=== PATIENT | male | born 1940 | race Caucasian/White ===

== ENCOUNTER 2016-04-09 06:40 | Day surgery (SDC) | payer OTHER, BC ==
[2016-04-09 07:46] VITALS: BMI 25.4
[2016-04-09] MEDS ORDERED: LIDOCAINE HCL 2% 100 MG/5 ML DISP.SYRIN ONE (08:37)
[2016-04-09] MEDS ORDERED: PROPOFOL 20 ML ONE ×2 (08:37)
[2016-04-09 09:41] VITALS: TEMP 97.5
[2016-04-09 09:51] VITALS: PULSE 62
[2016-04-09 10:21] VITALS: BP 121/66
--- NOTE | 2016-04-10 10:35 | PATH ---
Surgical Pathology Report Patient Name: CAROLINE KRUGER [facility]. Rec. #: [id number] /Age/Gender: 1940 (Age: 75) / M Account: [id number] Location: [facility]-ENDOSCOPY Taken: 04/09/2016 Received: 04/09/2016 Reported: 04/10/2016 Physicians: Trino Saldaña M.D. Specimen(s) Received A: BX 38 CM ESOPHAGUS B: BX 36 CM ESOPHAGUS C: BX 34 CM ESOPHAGUS D: BX 32 CM ESOPHAGUS E: BX 30 CM ESOPHAGUS F: BX 28 CM ESOPHAGUS Clinical History Barretts esophagus Final Diagnosis A. ESOPHAGUS, 38 CM, BIOPSY: SQUAMOUS AND GASTRIC MUCOSA WITH CHRONIC INFLAMMATION AND INTESTINAL METAPLASIA CONSISTENT WITH MORA'S ESOPHAGUS. NO DYSPLASIA IDENTIFIED. B. ESOPHAGUS, 36 CM, BIOPSY: SQUAMOUS AND GASTRIC MUCOSA WITH CHRONIC INFLAMMATION AND INTESTINAL METAPLASIA CONSISTENT WITH MORA'S ESOPHAGUS. NO DYSPLASIA IDENTIFIED. C. ESOPHAGUS, 34 CM, BIOPSY: SQUAMOUS AND GASTRIC MUCOSA WITH CHRONIC INFLAMMATION AND INTESTINAL METAPLASIA CONSISTENT WITH MORA'S ESOPHAGUS. NO DYSPLASIA IDENTIFIED. D. ESOPHAGUS, 32 CM, BIOPSY: SQUAMOUS AND GASTRIC MUCOSA WITH CHRONIC INFLAMMATION AND INTESTINAL METAPLASIA CONSISTENT WITH MORA'S ESOPHAGUS. NO DYSPLASIA IDENTIFIED. E. ESOPHAGUS, 30 CM, BIOPSY: SQUAMOUS AND GASTRIC MUCOSA WITH CHRONIC INFLAMMATION AND INTESTINAL METAPLASIA CONSISTENT WITH MORA'S ESOPHAGUS. NO DYSPLASIA IDENTIFIED. F. ESOPHAGUS, 28 CM, BIOPSY: SQUAMOUS AND GASTRIC MUCOSA WITH CHRONIC INFLAMMATION AND INTESTINAL METAPLASIA CONSISTENT WITH MORA'S ESOPHAGUS. NO DYSPLASIA IDENTIFIED. Electronically Signed Cory Pettit M.D. Gross Description A. Received in formalin, labeled "biopsy 38 cm esophagus" are 3 laboy, irregular portions of soft tissue ranging from 0.2-0.5 cm. in greatest dimension. The specimens are submitted in toto in one cassette. B. Received in formalin, labeled "biopsy 36 cm esophagus" are 5 laboy, irregular portions of soft tissue ranging from 0.1-0.7 cm. in greatest dimension. The specimens are submitted in toto in one cassette. C. Received in formalin, labeled "biopsy 34 cm esophagus" are 4 laboy, irregular portions of soft tissue averaging 0.2 cm. in greatest dimension. The specimens are submitted in toto in one cassette. D. Received in formalin, labeled "biopsy 32 cm esophagus" are 5 laboy, irregular portions of soft tissue averaging 0.2 cm. in greatest dimension. The specimens are submitted in toto in one cassette. E. Received in formalin, labeled "biopsy 30 cm esophagus" are 2 laboy, irregular portions of soft tissue measuring 0.2 and 0.3 cm. in greatest dimension. The specimens are submitted in toto in one cassette. F. Received in formalin, labeled "biopsy 28 cm esophagus" are 3 laboy, irregular portions of soft tissue ranging from 0.2-0.4 cm. in greatest dimension. The specimens are submitted in toto in one cassette. 04/09/2016 [facility]04/09/2016
== END 2016-04-09 10:42 | disposition home or self-care (01) ==
LOC: JASU-ENDO 06:40
PROVIDERS: ATTEND Internal Medicine Gastroenterology
PROC: 0DB18ZX Excision of Upper Esophagus, Via Natural or Artificial Opening Endoscopic, Diagnostic (ICD-10-PCS; 2016-04-09)
PROC: 0DB28ZX Excision of Middle Esophagus, Via Natural or Artificial Opening Endoscopic, Diagnostic (ICD-10-PCS; 2016-04-09)
PROC: 0DB38ZX Excision of Lower Esophagus, Via Natural or Artificial Opening Endoscopic, Diagnostic (ICD-10-PCS; principal; 2016-04-09 08:30)
DX: K22.70 Barrett's esophagus without dysplasia (principal)
CPT/HCPCS: 88305-TC

== ENCOUNTER 2018-02-11 13:14 | Inpatient (IN) | payer OTHER, BC ==
[2018-02-11 13:42] VITALS: BMI 25.4
--- NOTE | 2018-02-11 14:18 | PDOC ---
History of Present Illness - General Chief Complaint: Abscess Boil Stated Complaint: ABCESS/ CYST Time Seen by Provider: 02/11/18 14:05 History Source: Patient Exam Limitations: No Limitations - History of Present Illness Initial Comments: 77 yo M w a pmh of margot esophagus with wide reflux, gerd, dvt, copd, hyperlidpidemia, hypothyroidism, bph, presents to the ER with pain on his buttock. He reports that for the past 3 days his pain has worsened and now he cannot sit on his but unless he applies a significant amount of lidocaine to the painful area which he bought from the drug store. The painful area around his bum is so painful that he has not been able to make a bowel movement for the past 3 days. He states he had a fever of 102 at home and then took tylenol. He called his GI doc - Doctor my who advised him to come to the ER to have his rectume checked out. Denies any chest pain, SOB, or difficulty breathing. PCP: Sola Alvarez Social Hx: former smoker - 10 pack year. Quit more than 10 years ago Allergies: NKA, NKDA Psh: Left leg vascular repair, multiple hernia repairs. Past History - Past Medical History Allergies/Adverse Reactions: Allergies Allergy/AdvReac Type Severity Reaction Status Date / Time No Known Drug Allergies Allergy Verified 02/11/18 13:37 Home Medications: Ambulatory Orders Levothyroxine [Synthroid -] 100 mcg PO DAILY 11/11/12 Multivitamin [Multi-Day Vitamins] 1 each PO DAILY 11/11/12 [place]-3 Acid Ethyl Esters [Lovaza -] 2,000 mg PO BID 11/11/12 Glucosam/[place]/C/Manganese [Cosamin Ds Capsule] 1 each PO BID 03/15/15 Tamsulosin HCl 0.4 mg PO HS 03/15/15 Clopidogrel Bisulfate [Plavix -] 75 mg PO DAILY #30 tablet 09/28/15 Gabapentin 300 mg PO HS 04/09/16 Montelukast Na [Singulair -] 10 mg PO HS 04/09/16 Atorvastatin Calcium 20 mg PO HS 06/11/17 Hydrocodone/Acetaminophen [Hydrocodone-Acetamin 7.5-325] 1 each PO DAILY Magnesium Carb/Aluminum Hydrox [Gaviscon Es Tablet Chew] 1 each PO BID 06/11/17 Pantoprazole Sodium 40 mg PO DAILY 06/11/17 Ranitidine HCl [Zantac] 300 mg PO HS 06/11/17 Acetaminophen [Tylenol .Regular Strength -] 650 mg PO Q6H PRN tablet 06/14/17 Albuterol 0.083% Nebulizer Tesha [Ventolin 0.083% Nebulizer Soln -] 1 amp NEB Q4H PRN #120 amp 06/14/17 Cefuroxime Axetil [Ceftin -] 500 mg PO BID #10 tablet 06/14/17 Docusate Sodium [Colace -] 100 mg PO DAILY capsule 06/14/17 Oseltamivir Phosphate [Tamiflu -] 75 mg PO BID #8 capsule 06/14/17 Pantoprazole Sodium [Protonix -] 40 mg PO DAILY tablet.ec 06/14/17 Pramoxine Hcl [Proctofoam] 0 gm TP HS 30 Days insert 06/14/17 Prednisone [Deltasone] 20 mg PO DAILY #30 tablet 06/14/17 Tiotropium [place] [Spiriva] 1 puff IH DAILY #1 cap 06/14/17 oxyCODONE HCL [Roxicodone -] 5 mg PO Q8H PRN tablet MDD 3 06/14/17 Anemia: No Asthma: Yes Cancer: No Cardiac Disorders: Yes (CAROTID ARTERY STENOSIS) CVA: No COPD: Yes CHF: No Dementia: No Diabetes: No GI Disorders: Yes (GERD,MORA'S ESOPHAGUS,DIVERTICULAR DISEASE OF COLON) Disorders: Yes (BPH) HTN: No Hypercholesterolemia: Yes Liver Disease: No Seizures: No Thyroid Disease: Yes (HYPO) - Surgical History Abdominal Surgery: No Appendectomy: No Cardiac Surgery: Yes (LEFT ENDARTERECTOMY) Cholecystectomy: No Lung Surgery: No Neurologic Surgery: No Orthopedic Surgery: No - Immunization History Immunization Up to Date: Yes - Suicide/Smoking/Psychosocial Hx Smoking Status: Yes Smoking History: Former smoker Have you smoked in the past 12 months: No Number of Cigarettes Smoked Daily: 0 If you are a former smoker, when did you quit?: 2008 Information on smoking cessation initiated: No Hx Alcohol Use: No Drug/Substance Use Hx: No Substance Use Type: Alcohol Hx Substance Use Treatment: No Review of Systems - Review of Systems Able to Perform ROS?: Yes Comments:: CONSTITUTIONAL: Present: Fever Absent: no chills, no fatigue EYES: Absent: visual changes ENT: Absent: ear pain, no sore throat CARDIOVASCULAR: Absent: chest pain, no palpitations RESPIRATORY: Absent: cough, no SOB GI: Absent: abdominal pain, no nausea, no vomiting, no constipation, no diarrhea GENITOURINARY: Absent: dysuria, no frequency, no hematuria MUSKULOSKELETAL: Absent: back pain, no arthralgia, no myalgia SKIN: Present: rash NEURO: Absent: headache *Physical Exam - Vital Signs Last Vital Signs Temp Pulse Resp BP Pulse Ox 98.5 F 76 18 119/57 L 98 02/11/18 13:37 02/11/18 13:37 02/11/18 13:37 02/11/18 13:37 02/11/18 13:37 - Physical Exam Comments: GENERAL: Well-appearing, well-nourished. No apparent distress. Buttock: The medial half of the Left butt cheek is erythematous. There is a hard , indurated, fluctuant 6x7 cm painful abscess along the inferior rectum with active pus draining. HEENT: Normocephalic, atraumatic. PERRL, EOM intact. CARDIOVASCULAR: Normal S1, S2. Regular rate and rhythm. PULMONARY: Clear to auscultation bilaterally. ABDOMEN: Soft, non-distended, non-tender. EXTREMITIES: Normal ROM in all four extremities. No gross deformities. SKIN: Warm, dry. NEUROLOGICAL: No focal neurological deficits. Moderate Sedation - Procedure Monitoring Vital Signs: Procedure Monitoring Vital Signs Temperature 98.5 F 02/11/18 13:37 Pulse Rate 76 02/11/18 13:37 Respiratory Rate 18 02/11/18 13:37 Blood Pressure 119/57 L 02/11/18 13:37 O2 Sat by Pulse Oximetry (%) 98 02/11/18 13:37 Medical Decision Making - Medical Decision Making 77 yo M w a pmh of margot esophagus with wide reflux, gerd, dvt, copd, hyperlidpidemia, hypothyroidism, bph, presents to the ER with a perirectal abscess. DD includes but not limited to: dianna-rectal/dianna anal abscess, MRSA. Plan: Cbc, Cmp, Surgical consults, +/- I & D by surgery vs EM. - IV placement and INR ordered. Dr. Prince came and evaluated the patient. He is going to take the patient to the OR for an I and D of the perirectal abscess. Patient will be admitted to hospital or I&D in the OR by Dr. Prince *DC/Admit/Observation/Transfer Diagnosis at time of Disposition: Dianna-rectal abscess - Discharge Dispostion Condition at time of disposition: Guarded Decision to Admit order: Yes - Referrals Referrals: Sola Alvarez MD [Primary Care Provider] - - Patient Instructions - Post Discharge Activity
--- NOTE | 2018-02-11 16:02 | PDOC ---
Attending Attestation - Resident Resident Name: Shabbir Lopez - ED Attending Attestation I have performed the following: I have examined & evaluated the patient, The case was reviewed & discussed with the resident, I agree w/resident's findings & plan - HPI HPI: 02/11/18 15:59 77-year-old male with history of multiple medical problems presents with several days of progressive and painful left buttock lesion. No discharge or bleeding, unable to have bowel movement, reports 1 febrile episode of 102 but otherwise no chills. No history of recurring abscesses. - Physicial Exam PE: 02/11/18 16:00 Vital signs are within normal limits, afebrile Well-appearing 77-year-old male Skin exam: Left perianal abscess with tracking cellulitis of the left buttock, indurated region measuring about an to 12 cm, open lesion medially along the cleft with pustular head, there is palpable tender tracking induration around 11 :00 on rectal examination - Medical Decision Making 02/11/18 16:01 77-year-old male presents with perianal/perirectal abscess, no Sirs or sepsis. Check labs Surgery consulted, consider imaging will need I+D, possible OR
[2018-02-11 17:30] LABS: BASO % 0.4 % (0-2.0); EOS % 0.8 % (0-4.5); HEMATOCRIT 34.4 % (35.4-49); HEMOGLOBIN 12.6 GM/dL (11.7-16.9); LYMPH % 12.8 % (8-40); MCH 36.7 pg (25.7-33.7); MCHC 36.5 g/dl (32.0-35.9); MEAN CELL VOLUME 100.5 fl (80-96); MEAN PLT VOLUME 8.7 fl (7.5-11.1); MONO % 5.5 % (3.8-10.2); NEUT % 80.5 % (42.8-82.8); PLATELET COUNT 126 K/MM3 (134-434); RBC 3.43 M/mm3 (4.00-5.60); RDW 14.3 % (11.9-15.9); WHITE BLOOD COUNT 7.7 K/mm3 (4.0-10.0)
[2018-02-11] MEDS ORDERED: ACETAMINOPHEN 325 MG TABLET (FP) PO PRN ×2 (17:37→19:10)
[2018-02-11] MEDS ORDERED: ALBUTEROL SO4 0.083% IH SOL 2.5 MG/3 ML VIAL.NEB. NEB PRN ×2 (17:37→19:10)
[2018-02-11 17:40] LABS: INR 1.15 (0.83-1.09); PROTHROMBIN TIME (PATIENT) 13.6 SEC (9.7-13.0)
[2018-02-11] MEDS ORDERED: MORPHINE SULFATE 2 MG/ML VIAL IVPUSH PRN (17:41)
[2018-02-11] MEDS ORDERED: D5-1/2NS+20 MEQ KCL - 20 MEQ/1,000 ML INFUS.BAG IV SCH (17:45)
[2018-02-11] MEDS ORDERED: BUPIVACAINE HCL/PF 0.5% (5MG/ML) 10 ML VIAL ONE (17:48)
[2018-02-11] MEDS ORDERED: LIDOCAINE HCL 1%, 10 MG/ML (20ML VIAL) ONE (17:48)
[2018-02-11 17:52] LABS: ALBUMIN 3.5 g/dl (3.4-5.0); ALK PHOS 61 U/L (45-117); ANION GAP 6 MMOL/L (8-16); BLOOD UREA NITROGEN 22 mg/dL (7-18); CALCIUM 8.4 mg/dL (8.5-10.1); CHLORIDE 102 mmol/L (98-107); CO2 28 mmol/L (21-32); CREATININE 0.8 mg/dL (0.55-1.3); GLUCOSE,RANDOM 93 mg/dL (74-106); SGOT/AST 23 U/L (15-37); SGPT/ALT 24 U/L (13-61); SODIUM 137 mmol/L (136-145); TOT PROT 6.2 g/dl (6.4-8.2)
[2018-02-11] MEDS ORDERED: KETAMINE HCL 200 MG/20 ML VIAL ONE (18:00)
[2018-02-11] MEDS ORDERED: PROPOFOL 20 ML ONE (18:00)
[2018-02-11] MEDS ORDERED: MIDAZOLAM HCL 2 MG/2 ML SINGLE DOSE VIAL ONE (18:00)
[2018-02-11] MEDS ORDERED: GLYCOPYRROLATE 0.2 MG/1 ML VIAL ONE (18:06)
[2018-02-11] MEDS ORDERED: ERTAPENEM SODIUM 1 GM VIAL ONE (18:15)
[2018-02-11] MEDS ORDERED: ERTAPENEM SODIUM 1 GM VIAL IVPB ONE (18:16)
[2018-02-11] MEDS ORDERED: DEXAMETHASONE SOD PHOSPHATE 4 MG/1 ML VIAL ONE (18:38)
[2018-02-11] MEDS ORDERED: ONDANSETRON 4 MG/2 ML VIAL IVPUSH PRN ×2 (18:48→19:11)
[2018-02-11] MEDS ORDERED: oxyCODONE HCL 5 MG TABLET PO PRN ×3 (18:48→19:11)
--- NOTE | 2018-02-11 18:49 | OP ---
Operative Note - Note: Operative Date: 02/11/18 Pre-Operative Diagnosis: Left perirectal abscess Operation: I&D of L perirectal abscess Findings: as dictated Post-Operative Diagnosis: Other (L ischialrectal abscess) Surgeon: Robbi Prince Field Service Technician Poultry: Dariel Wheatley Anesthesiologist/MOBILE HEAVY EQUIPMENT OPERATOR: Chepe Figueroa Anesthesia: MAC Specimens Removed: cultures x 2 sent Estimated Blood Loss (mls): 20 (ml) Fluid Volume Replaced (mls): 800 (ml LR) Operative Report Dictated: Yes
--- NOTE | 2018-02-11 18:50 | SURG ---
Surgery Hostess Host Note Hostess Host: Dariel Wheatley PA-C (Suzy) Date of Service: 02/11/18 Diagnosis: L ischialrectal abscess Procedure: I&D of L ischialrectal abscess I was present for the entirety of the operative procedure. For further detail, please refer to operative report. Visit type - Case Type Case Type: ED Admission - Emergency Emergency Visit: Yes ED Registration Date: 02/11/18 Care time: The patient presented to the Emergency Department on the above date and was hospitalized for further evaluation of their emergent condition. - New patient This patient is new to me today: Yes Date on this admission: 02/13/18 - Critical Care Critical Care patient: No
[2018-02-11] MEDS ORDERED: LACTATED RINGERS SOLUTION 1,000 ML/1,000 ML INFUS.BAG IV SCH (19:00)
[2018-02-11] MEDS ORDERED: LACTATED RINGERS SOLUTION 1,000 ML IV SCH (19:00)
[2018-02-11] MEDS: D5-1/2NS+20 MEQ KCL - 20 MEQ/1,000 ML INFUS.BAG IV SCH (20:30)
--- NOTE | 2018-02-11 21:19 | HP ---
CHIEF COMPLAINT: Pain to right buttocks PCP: Dr. Sola Alvarez GI: Dr. Dueñas HISTORY OF PRESENT ILLNESS: 77 year old male with a PMH significant for Trevino's esophagus, GERD, COPD, CAD s/p L carotid endarterectomy, HLD, hypothyroidism, BPH presented to the ED with worsening pain to his left buttocks for 4 days. He has been using topical lidocaine to the area but now he can no longer sit. He has not had a bowel movement in 3 days because of the pain. He reports having a fever of 102 today for which he took APAP. He called his GI specialist Dr. Dueñas who recommended he come to the ED. Denies HAN, syncope, SOB, congestion, chest pain, palpitations , n/v. Upon admission to the ED, patient was found to have a 6x8 cm perirectal abscess for which surgeon Dr. Prince performed an I&D. Recent Travel: No PAST MEDICAL HISTORY: Archie's esophagus with wide reflux GERD DVT COPD HLD Hypothyroidism BPH PAST SURGICAL HISTORY: Left carotid endarterectomy 3 inguinal hernia repairs Right carpal tunnel surgery Left tibial ORIF Left leg vein stripping Social History: Smoking: Former, quit 12 years ago Alcohol: Quit 12 years ago Drugs: Denies Family History: Mother: Breast cancer, in her 90s Allergies No Known Drug Allergies Allergy (Verified 02/11/18 13:37) HOME MEDICATIONS: Home Medications Medication Instructions Recorded Levothyroxine [Synthroid -] 100 mcg PO DAILY 11/11/12 Multivitamin [Multi-Day Vitamins] 1 each PO DAILY 11/11/12 [place]-3 Acid Ethyl Esters [Lovaza 2,000 mg PO BID 11/11/12 -] Tamsulosin HCl 0.4 mg PO HS 03/15/15 Clopidogrel Bisulfate [Plavix -] 75 mg PO DAILY #30 tablet 09/28/15 Gabapentin 300 mg PO HS 04/09/16 Atorvastatin Calcium 20 mg PO HS 06/11/17 Hydrocodone/Acetaminophen 1 each PO BID 06/11/17 [Hydrocodone-Acetamin 7.5-325] Pantoprazole Sodium 40 mg PO DAILY 06/11/17 Ranitidine HCl [Zantac] 150 mg PO HS 06/11/17 Acetaminophen [Tylenol .Regular 650 mg PO Q6H PRN tablet 06/14/17 Strength -] Tiotropium [place] [Spiriva] 1 puff IH DAILY #1 cap 06/14/17 Aspirin 81 mg PO DAILY 02/11/18 REVIEW OF SYSTEMS CONSTITUTIONAL: Absent: fever, chills, diaphoresis, generalized weakness, malaise, loss of appetite, weight change HEENT: Absent: rhinorrhea, nasal congestion, throat pain, throat swelling, difficulty swallowing, mouth swelling, ear pain, eye pain, visual changes CARDIOVASCULAR: Absent: chest pain, syncope, palpitations, irregular heart rate, lightheadedness , peripheral edema RESPIRATORY: Absent: cough, shortness of breath, dyspnea with exertion, orthopnea, wheezing, stridor, hemoptysis GASTROINTESTINAL: (+) Constipation Absent: abdominal pain, abdominal distension, nausea, vomiting, diarrhea, melena , hematochezia GENITOURINARY: Absent: dysuria, frequency, urgency, hesitancy, hematuria, flank pain, genital pain MUSCULOSKELETAL: Absent: myalgia, arthralgia, joint swelling, back pain, neck pain SKIN: Absent: rash, itching, pallor HEMATOLOGIC/IMMUNOLOGIC: Absent: easy bleeding, easy bruising, lymphadenopathy, frequent infections ENDOCRINE: Absent: unexplained weight gain, unexplained weight loss, heat intolerance, cold intolerance NEUROLOGIC: Absent: headache, focal weakness or paresthesias, dizziness, unsteady gait, seizure, mental status changes, bladder or bowel incontinence PSYCHIATRIC: Absent: anxiety, depression, suicidal or homicidal ideation, hallucinations. PHYSICAL EXAMINATION Vital Signs - 24 hr 02/11/18 02/11/18 02/11/18 13:37 17:15 18:45 Temperature 98.5 F 99.1 F 98.1 F Pulse Rate 76 100 H Pulse Rate [ 69 Radial] Respiratory 18 18 16 Rate Blood Pressure 119/57 L 132/72 Blood Pressure 125/65 [Left Arm] O2 Sat by Pulse 98 98 100 Oximetry (%) 02/11/18 02/11/18 02/11/18 19:00 19:15 19:30 Temperature Pulse Rate 84 80 78 Pulse Rate [ Radial] Respiratory 16 16 18 Rate Blood Pressure 107/41 L 107/44 L 109/42 L Blood Pressure [Left Arm] O2 Sat by Pulse 98 100 100 Oximetry (%) 02/11/18 19:45 Temperature Pulse Rate 80 Pulse Rate [ Radial] Respiratory 18 Rate Blood Pressure 112/65 Blood Pressure [Left Arm] O2 Sat by Pulse 100 Oximetry (%) GENERAL: Awake, alert, and fully oriented, in no acute distress. HEAD: Normal with no signs of trauma. EYES: Pupils equal, round and reactive to light, extraocular movements intact, sclera anicteric, conjunctiva clear. No lid lag. EARS, NOSE, THROAT: Ears normal, nares patent, oropharynx clear without exudates. Moist mucous membranes. NECK: Normal range of motion, supple without lymphadenopathy, JVD, or masses. LUNGS: Breath sounds equal, clear to auscultation bilaterally. No wheezes, and no crackles. No accessory muscle use. HEART: Regular rate and rhythm, normal S1 and S2 without murmur, rub or gallop. ABDOMEN: Soft, nontender, not distended, normoactive bowel sounds, no guarding, no rebound, no masses. No hepatomegaly or splenomegaly. MUSCULOSKELETAL: Normal range of motion at all joints. No bony deformities or tenderness. No CVA tenderness. UPPER EXTREMITIES: 2+ pulses, warm, well-perfused. No cyanosis. No clubbing. No peripheral edema. LOWER EXTREMITIES: Non-pitting edema to left leg, 2+ pulses, warm, well- perfused. No calf tenderness NEUROLOGICAL: No facial droop, tongue midline, normal speech. Normal gait. PSYCHIATRIC: Cooperative. Good eye contact. Appropriate mood and affect. SKIN: Erythema to medial left buttocks. 6x8 cm raised, round, firm lesion with purulent drainage to LT rectum. Otherwise, skin warm, dry, normal turgor, no rashes or lesions noted, normal capillary refill. Laboratory Results - last 24 hr 02/11/18 02/11/18 02/11/18 17:10 17:10 17:10 WBC 7.7 RBC 3.43 L Hgb 12.6 Hct 34.4 L MCV 100.5 H MCH 36.7 H MCHC 36.5 H RDW 14.3 Plt Count 126 L MPV 8.7 Absolute Neuts (auto) 6.2 Neutrophils % 80.5 Lymphocytes % 12.8 D Monocytes % 5.5 Eosinophils % 0.8 D Basophils % 0.4 D Nucleated RBC % 0 PT with INR 13.60 H INR 1.15 H Sodium 137 Potassium 4.0 Chloride 102 Carbon Dioxide 28 Anion Gap 6 L BUN 22 H Creatinine 0.8 Creat Clearance w eGFR > 60 Random Glucose 93 Calcium 8.4 L Total Bilirubin 1.0 AST 23 ALT 24 Alkaline Phosphatase 61 Total Protein 6.2 L Albumin 3.5 ASSESSMENT/PLAN: 77 year old male with a PMH significant for Trevino's esophagus, GERD, COPD, CAD s/p L carotid endarterectomy, HLD, hypothyroidism, BPH presented to the ED with pain to his left buttocks for 4 days. He was admitted for surgical I&D of perirectal abscess. Perirectal Abscess - I&D by surgeon Dr. Prince today - Ancef 1G IV q8H - Pain management: - Morphine 1 mg IVP q4h PRN - Oxycodone 5 and 10 mg PO q4h PRN GERD - Hx of Treivno's esophagus with wide reflux - Ranitidine 150 mg PO QHS - Protonix 40 mg PO qday COPD - Stable - Continue Singular 2 puffs qday CAD - S/p left carotid endarterectomy 2 years ago - Continue ASA 81 mg PO qday HLD - Atorvastatin 20 mg PO QHS - [place] 3 2G PO BID Hypothyroidism - Continue Synthroid 100 mcg qday BPH - Tamsulosin 0.4 mg PO qday Seasonal Allergies - Singular 10 mg PO qday Supplement - Multivitamin Prophylaxis - DVT: Heparin SQ - GI: Protonix 40 mg PO qday FEN - D5 1/2 NS c 20 meq KCL @ 75 cc/hr - Replete as needed - Na controlled diet Disp: Patient requires further inpatient post-op monitoring. Visit type - Emergency Visit Emergency Visit: Yes Care time: The patient presented to the Emergency Department on the above date and was hospitalized for further evaluation of their emergent condition. - New Patient This patient is new to me today: Yes Date on this admission: 02/11/18 - Critical Care Critical Care patient: No
[2018-02-11] MEDS ORDERED: HEPARIN NA (PORCINE) 5,000 UNITS/ML 1ML VIAL SQ SCH (22:00)
[2018-02-11] MEDS ORDERED: MONTELUKAST NA 10 MG TABLET PO SCH (22:00)
[2018-02-11] MEDS ORDERED: ATORVASTATIN CA 20 MG TABLET (FP) PO SCH (22:00)
[2018-02-11] MEDS ORDERED: GABAPENTIN 300 MG CAPSULE (FP) PO SCH (22:00)
[2018-02-11] MEDS: HEPARIN NA (PORCINE) 5,000 UNITS/ML 1ML VIAL SQ SCH (23:05)
[2018-02-11] MEDS: MONTELUKAST NA 10 MG TABLET PO SCH (23:06)
[2018-02-11] MEDS: RANITIDINE HCL 150 MG TABLET (FP) PO SCH (23:06)
[2018-02-11] MEDS: GABAPENTIN 300 MG CAPSULE (FP) PO SCH (23:06)
[2018-02-11] MEDS: OMEGA-3 ACID ETHYL ESTERS (FATTY-ACIDS) 1 GM CAPSULE (FP) PO SCH (23:06)
[2018-02-11] MEDS: ATORVASTATIN CA 20 MG TABLET (FP) PO SCH (23:06)
[2018-02-12] MEDS: CEFAZOLIN 1 GM/D5W 1 GM/50 ML BAG IVPB SCH ×3 (02:32→18:13)
[2018-02-12] MEDS: LEVOTHYROXINE NA 100 MCG TABLET (FP) PO SCH (06:05)
[2018-02-12 06:40] LABS: BASO % 0.2 % (0-2.0); HEMATOCRIT 33.8 % (35.4-49); HEMOGLOBIN 11.7 GM/dL (11.7-16.9); LYMPH % 6.3 % (8-40); MCH 34.9 pg (25.7-33.7); MCHC 34.7 g/dl (32.0-35.9); MEAN CELL VOLUME 100.5 fl (80-96); MEAN PLT VOLUME 8.3 fl (7.5-11.1); MONO % 4.1 % (3.8-10.2); NEUT % 89.4 % (42.8-82.8); PLATELET COUNT 129 K/MM3 (134-434); RBC 3.36 M/mm3 (4.00-5.60); WHITE BLOOD COUNT 7.9 K/mm3 (4.0-10.0)
[2018-02-12] MEDS ORDERED: LEVOTHYROXINE NA 100 MCG TABLET (FP) PO SCH (07:00)
[2018-02-12 07:02] LABS: ALK PHOS 51 U/L (45-117); ANION GAP 7 MMOL/L (8-16); BILIRUBIN,TOTAL 0.7 mg/dL (0.2-1); BLOOD UREA NITROGEN 16 mg/dL (7-18); CALCIUM 7.8 mg/dL (8.5-10.1); CHLORIDE 103 mmol/L (98-107); CO2 27 mmol/L (21-32); CREATININE 0.7 mg/dL (0.55-1.3); GLUCOSE,RANDOM 127 mg/dL (74-106); POTASSIUM 4.6 mmol/L (3.5-5.1); SGOT/AST 18 U/L (15-37); SGPT/ALT 21 U/L (13-61); SODIUM 137 mmol/L (136-145); TOT PROT 5.5 g/dl (6.4-8.2)
[2018-02-12] MEDS ORDERED: TAMSULOSIN HCL 0.4 MG CAP PO SCH (08:30)
[2018-02-12] MEDS: MORPHINE SULFATE 2 MG/ML VIAL IVPUSH PRN (08:48)
[2018-02-12] MEDS ORDERED: PANTOPRAZOLE 40 MG TABLET (FP) PO SCH ×2 (10:00)
[2018-02-12] MEDS ORDERED: TIOTROPIUM BROMIDE 2.5 MCG (SPIRIVA) RESPIMAT INHALER IH SCH (10:00)
--- NOTE | 2018-02-12 10:00 | PN ---
Progress Note (short form) - Note Progress Note: POD#1 Pt without pain overnight. Packing changed this am. He states that he hasn't had a bowel movement for 5 days. Vital Signs Period Temp Pulse Resp BP Sys/Luna Pulse Ox Last 24 Hr 97.5 F-99.1 F 65-100 16-18 107-144/41-72 98-100 GEN: Appears Left buttock: Packing removed, no purulent drainage. Minimal bleeding. Repacked with 2 inch iodoform packing. No surrounding erythema. CBC, BMP //18 06:00 12//18 06:00 A/p: 77 yo male s/p Left marivel-rectal I&D, POD#1 Daily packing changes with iodoform Sitz baths daily and after BM to keep incision clean. Stool softners VNS ordered D/w Dr. Prince
[2018-02-12] MEDS ORDERED: POLYETHYLENE GLYCOL 3350 119 GM BTL PO PRN (10:01)
--- NOTE | 2018-02-12 10:02 | PN ---
Progress Note, Physician - Current Medication List Current Medications: Active Medications Acetaminophen (Tylenol -) 650 mg PO Q6H PRN PRN Reason: PAIN LEVEL 1-5 Albuterol Sulfate (Ventolin 0.083% Nebulizer Soln -) 1 amp NEB Q4H PRN PRN Reason: SHORT OF BREATH/WHEEZING Aspirin (Asa -) 81 mg PO DAILY [facility] Atorvastatin Calcium (Lipitor -) 20 mg PO HS [facility] Last Admin: 02/11/18 23:06 Dose: 20 mg Clopidogrel Bisulfate (Plavix -) 75 mg PO DAILY [facility] Docusate Sodium (Colace -) 100 mg PO BID [facility] Gabapentin (Neurontin -) 300 mg PO [facility] Last Admin: 02/11/18 23:06 Dose: 300 mg Heparin Sodium (Porcine) (Heparin -) 5,000 unit SQ BID [facility] Last Admin: 02/11/18 23:05 Dose: 5,000 unit Cefazolin Sodium (Ancef 1 Gm Premixed Ivpb -) 1 gm in 50 mls @ 100 mls/hr IVPB Q8H-IV [facility] Last Admin: 02/12/18 02:32 Dose: 100 mls/hr Potassium Chloride/Dextrose/Sod Cl (D5-1/2ns+20 Meq Kcl -) 20 meq in 1,000 mls @ 75 mls/hr IV ASDIR [facility] Last Admin: 02/11/18 20:30 Dose: 0 mls Levothyroxine Sodium (Synthroid -) 100 mcg PO DAILY@0700 [facility] Last Admin: 02/12/18 06:05 Dose: 100 mcg Montelukast Sodium (Singulair -) 10 mg PO HS [facility] Last Admin: 02/11/18 23:06 Dose: 10 mg Morphine Sulfate (Morphine Sulfate) 1 mg IVPUSH Q4H PRN PRN Reason: PAIN LEVEL 6-10 Last Admin: 02/12/18 08:48 Dose: 1 mg Multivitamins/Minerals/Vitamin C (Tab-A-Vit -) 1 tab PO DAILY [facility] [id number] Ethyl Esters (Lovaza -) 2 gm PO BID [facility] Last Admin: 02/11/18 23:06 Dose: 2 gm Ondansetron HCl (Zofran Injection) 4 mg IVPUSH Q6H PRN PRN Reason: NAUSEA AND/OR VOMITING Oxycodone HCl (Roxicodone -) 5 mg PO Q4H PRN PRN Reason: PAIN LEVEL 1-5 Oxycodone HCl (Roxicodone -) 10 mg PO Q4H PRN PRN Reason: PAIN LEVEL 6-10 Stop: 02/12/18 18:47 Pantoprazole Sodium (Protonix -) 40 mg PO DAILY [facility] Ranitidine HCl (Zantac -) 150 mg PO HS [facility] Last Admin: 02/11/18 23:06 Dose: 150 mg Tamsulosin HCl (Flomax -) 0.4 mg PO DAILY@0830 [facility] Tiotropium [place] (Spiriva Respimat) 2 puff IH DAILY [facility] - Objective Vital Signs: Vital Signs Temperature 97.5 F L 02/12/18 06:00 Pulse Rate 65 02/12/18 06:00 Respiratory Rate 18 02/12/18 06:00 Blood Pressure 144/61 02/12/18 06:00 O2 Sat by Pulse Oximetry (%) 98 02/12/18 03:29 Cardiovascular: Yes: Regular Rate and Rhythm Respiratory: Yes: Regular, CTA Bilaterally Gastrointestinal: Yes: Normal Bowel Sounds, Soft. No: Tenderness Labs: CBC, BMP 02/12/18 06:00 02/12/18 06:00 INR, PTT INR 1.15 (0.83-1.09) H 02/11/18 17:10 Problem List - Problems (1) Dianna-rectal abscess Assessment/Plan: - I&D by surgeon Dr. Prince - [place] 1G IV q8H - Pain management: - Morphine 1 mg IVP q4h PRN - Oxycodone 5 and 10 mg PO q4h PRN - ID CONSULT Code(s): K61.1 - RECTAL ABSCESS (2) BPH (benign prostatic hyperplasia) Assessment/Plan: - Tamsulosin 0.4 mg PO qday Code(s): N40.0 - BENIGN PROSTATIC HYPERPLASIA WITHOUT LOWER URINRY TRACT SYMP (3) Mora esophagus Assessment/Plan: - Hx of Mora's esophagus with wide reflux - Ranitidine 150 mg PO QHS - Protonix 40 mg PO qday Code(s): K22.70 - MORA'S ESOPHAGUS WITHOUT DYSPLASIA (4) HTN (hypertension) Assessment/Plan: SAME MEDS MONITOR Code(s): I10 - ESSENTIAL (PRIMARY) HYPERTENSION
[2018-02-12] MEDS: D5-1/2NS+20 MEQ KCL - 20 MEQ/1,000 ML INFUS.BAG IV SCH (10:53)
[2018-02-12] MEDS: PANTOPRAZOLE 40 MG TABLET (FP) PO SCH (10:55)
[2018-02-12] MEDS: MULTIVITAMINS (DAILY MVI) TABLET (FP) PO SCH (10:55)
[2018-02-12] MEDS: DOCUSATE SODIUM 100 MG CAPSULE (FP) PO SCH ×2 (10:55→22:11)
[2018-02-12] MEDS: HEPARIN NA (PORCINE) 5,000 UNITS/ML 1ML VIAL SQ SCH ×2 (10:55→22:11)
[2018-02-12] MEDS: TAMSULOSIN HCL 0.4 MG CAP PO SCH (10:55)
[2018-02-12] MEDS: ASPIRIN 81 MG CHEWABLE TABLETS PO SCH (10:55)
[2018-02-12] MEDS: CLOPIDOGREL BISULFATE 75 MG TABLET (FP) PO SCH (10:55)
[2018-02-12] MEDS: OMEGA-3 ACID ETHYL ESTERS (FATTY-ACIDS) 1 GM CAPSULE (FP) PO SCH ×2 (10:56→22:11)
[2018-02-12] MEDS: TIOTROPIUM BROMIDE 2.5 MCG (SPIRIVA) RESPIMAT INHALER IH SCH (10:56)
--- NOTE | 2018-02-12 11:32 | PN ---
Progress Note (short form) - Note Progress Note: Anesthesia POD#1 S/P Perirectal Abscess I & D under GA VSS,bearable pain.No N/V vomiting. Gertrude Flower MD.
[2018-02-12] MEDS: RANITIDINE HCL 150 MG TABLET (FP) PO SCH (16:37)
[2018-02-12] MEDS: GABAPENTIN 300 MG CAPSULE (FP) PO SCH (22:11)
[2018-02-12] MEDS: MONTELUKAST NA 10 MG TABLET PO SCH (22:11)
[2018-02-12] MEDS: ATORVASTATIN CA 20 MG TABLET (FP) PO SCH (22:12)
[2018-02-13] MEDS: D5-1/2NS+20 MEQ KCL - 20 MEQ/1,000 ML INFUS.BAG IV SCH ×4 (01:25→22:54)
[2018-02-13] MEDS: CEFAZOLIN 1 GM/D5W 1 GM/50 ML BAG IVPB SCH ×3 (01:31→18:30)
[2018-02-13] MEDS: LEVOTHYROXINE NA 100 MCG TABLET (FP) PO SCH (06:27)
[2018-02-13] MEDS ORDERED: PT OWN MED DRAWER 7, Y5N ONE ×5 (06:43→21:14)
[2018-02-13] MEDS ORDERED: MORPHINE SULFATE 2 MG/ML VIAL IVPUSH ONE (08:31)
--- NOTE | 2018-02-13 09:59 | PN ---
Progress Note (short form) - Note Progress Note: POD#2 Pt without pain overnight. Packing changed this am. He states that he hasn't had a bowel movement for 6 days, requesting enema. Denies cp/sob, n/v, calf pain /edema. Vital Signs Temp 97.7 F 02/13/18 08:29 Pulse 77 02/13/18 08:29 Resp 20 02/13/18 08:29 BP 132/62 02/13/18 08:29 Pulse Ox 98 02/12/18 21:00 Intake & Output 02/12/18 02/12/18 02/13/18 11:59 23:59 11:59 Intake Total 430 1600 912.5 Output Total 300 200 450 Balance 130 1400 462.5 Weight 172 lb Intake: IV 600 862.5 D5-1/2NS+20 MEQ KCL - 20 600 862.5 meq In 1,000 ml @ 75 mls/ hr IV ASDIR YUDI Rx#: [id number] IVPB 100 50 Oral 430 900 Output: Urine 300 200 450 Void 300 200 450 Other: Voiding Method Urinal Urinal # Unmeasured Voids Void 1 2 3 Bowel Movement No No No Height 5 ft 9 in Body Mass Index (BMI) 25.4 CBC, BMP 02/12/18 06:00 02/12/18 06:00 GEN: awake, alert, nad. Laying in bed on right side. Left buttock: Erythema and edema appears improved from OR. Packing removed, no purulent drainage, no bleeding. No foul odor. Repacked with 2 inch iodoform packing, covered with 4x4 and tape. Pt tolerated well. A/p: 77 y/o M w/ PMHx GERD c/b Trevino's esophagus, COPD, CAD, h/o L carotid endarterectomy, HLD, hypothyroidism, BPH admitted with perirectal abscess, now POD 2 s/p I&D of ischialrectal abscess. VSS, no leukocytosis. Induration and erythema improving. Sitz baths daily and after BM to keep incision clean. Change dressing after BM if it becomes soiled Stool softners, Miralax this AM, consider enema. VNS for d/c D/w Dr. Prince
[2018-02-13] MEDS: PANTOPRAZOLE 40 MG TABLET (FP) PO SCH (10:11)
[2018-02-13] MEDS: TIOTROPIUM BROMIDE 2.5 MCG (SPIRIVA) RESPIMAT INHALER IH SCH (10:11)
[2018-02-13] MEDS: ASPIRIN 81 MG CHEWABLE TABLETS PO SCH (10:11)
[2018-02-13] MEDS: CLOPIDOGREL BISULFATE 75 MG TABLET (FP) PO SCH (10:12)
[2018-02-13] MEDS: MULTIVITAMINS (DAILY MVI) TABLET (FP) PO SCH (10:12)
[2018-02-13] MEDS: RANITIDINE HCL 150 MG TABLET (FP) PO SCH ×2 (10:12→21:27)
[2018-02-13] MEDS: DOCUSATE SODIUM 100 MG CAPSULE (FP) PO SCH ×2 (10:12→21:27)
[2018-02-13] MEDS: HEPARIN NA (PORCINE) 5,000 UNITS/ML 1ML VIAL SQ SCH ×2 (10:13→21:26)
[2018-02-13] MEDS: TAMSULOSIN HCL 0.4 MG CAP PO SCH (10:14)
[2018-02-13] MEDS: OMEGA-3 ACID ETHYL ESTERS (FATTY-ACIDS) 1 GM CAPSULE (FP) PO SCH ×2 (10:14→22:53)
--- NOTE | 2018-02-13 13:42 | PN ---
Progress Note, Physician Chief Complaint: s/p I/D for perirectal abscess constipated miralax not helping will give enema on iv abx - Current Medication List Current Medications: Active Medications Acetaminophen (Tylenol -) 650 mg PO Q6H PRN PRN Reason: PAIN LEVEL 1-5 Last Admin: 02/13/18 08:45 Dose: 650 mg Albuterol Sulfate (Ventolin 0.083% Nebulizer Soln -) 1 amp NEB Q4H PRN PRN Reason: SHORT OF BREATH/WHEEZING Aspirin (Asa -) 81 mg PO DAILY [facility] Last Admin: 02/13/18 10:11 Dose: 81 mg Atorvastatin Calcium (Lipitor -) 20 mg PO [facility] Last Admin: 02/12/18 22:12 Dose: 20 mg Clopidogrel Bisulfate (Plavix -) 75 mg PO DAILY [facility] Last Admin: 02/13/18 10:12 Dose: 75 mg Docusate Sodium (Colace -) 100 mg PO BID [facility] Last Admin: 02/13/18 10:12 Dose: 100 mg Gabapentin (Neurontin -) 300 mg PO [facility] Last Admin: 02/12/18 22:11 Dose: 300 mg Heparin Sodium (Porcine) (Heparin -) 5,000 unit SQ BID [facility] Last Admin: 02/13/18 10:13 Dose: 5,000 unit Cefazolin Sodium (Ancef 1 Gm Premixed Ivpb -) 1 gm in 50 mls @ 100 mls/hr IVPB Q8H-IV [facility] Last Admin: 02/13/18 10:13 Dose: 100 mls/hr Potassium Chloride/Dextrose/Sod Cl (D5-1/2ns+20 Meq Kcl -) 20 meq in 1,000 mls @ 75 mls/hr IV ASDIR [facility] Last Admin: 02/13/18 06:27 Dose: 75 mls/hr Levothyroxine Sodium (Synthroid -) 100 mcg PO DAILY@0700 [facility] Last Admin: 02/13/18 06:27 Dose: 100 mcg Mineral Oil (Fleet Mineral Oil Rectal Enema -) 133 ml ND NOW ONE Stop: 02/13/18 13:31 Montelukast Sodium (Singulair -) 10 mg PO [facility] Last Admin: 02/12/18 22:11 Dose: 10 mg Morphine Sulfate (Morphine Sulfate) 1 mg IVPUSH Q4H PRN PRN Reason: PAIN LEVEL 6-10 Last Admin: 02/12/18 08:48 Dose: 1 mg Multivitamins/Minerals/Vitamin C (Tab-A-Vit -) 1 tab PO DAILY [facility] Last Admin: 02/13/18 10:12 Dose: 1 tab Gdftx-0-Lbmw Ethyl Esters (Lovaza -) 2 gm PO BID [facility] Last Admin: 02/13/18 10:14 Dose: 2 gm Ondansetron HCl (Zofran Injection) 4 mg IVPUSH Q6H PRN PRN Reason: NAUSEA AND/OR VOMITING Oxycodone HCl (Roxicodone -) 5 mg PO Q4H PRN PRN Reason: PAIN LEVEL 1-5 Pantoprazole Sodium (Protonix -) 40 mg PO DAILY [facility] Last Admin: 02/13/18 10:11 Dose: 40 mg Polyethylene Glycol (Miralax (For Daily Use) -) 17 gm PO DAILY PRN PRN Reason: CONSTIPATION Last Admin: 02/13/18 09:24 Dose: 17 grams Ranitidine HCl (Zantac -) 150 mg PO BID [facility] Last Admin: 02/13/18 10:12 Dose: 150 mg Tamsulosin HCl (Flomax -) 0.4 mg PO [facility] Tiotropium [place] (Spiriva Respimat) 2 puff IH DAILY [facility] Last Admin: 02/13/18 10:11 Dose: 2 puff - Objective Vital Signs: Vital Signs Temperature 97.7 F 02/13/18 08:29 Pulse Rate 77 02/13/18 08:29 Respiratory Rate 20 02/13/18 08:29 Blood Pressure 132/62 02/13/18 08:29 O2 Sat by Pulse Oximetry (%) 96 02/13/18 11:00 Constitutional: Yes: Calm Cardiovascular: Yes: Regular Rate and Rhythm, S1, S2 Respiratory: Yes: CTA Bilaterally Gastrointestinal: Yes: Normal Bowel Sounds, Soft ...Rectal Exam: Yes: Other (dressing seen) Edema: No Labs: CBC, BMP 02/12/18 06:00 02/12/18 06:00 INR, PTT INR 1.15 (0.83-1.09) H 02/11/18 17:10 Problem List - Problems (1) Dianna-rectal abscess Assessment/Plan: s/p I/D stool sofnter iv abx Code(s): K61.1 - RECTAL ABSCESS (2) Hypothyroid Assessment/Plan: on synthroid Code(s): E03.9 - HYPOTHYROIDISM, UNSPECIFIED (3) BPH (benign prostatic hyperplasia) Assessment/Plan: flomax Code(s): N40.0 - BENIGN PROSTATIC HYPERPLASIA WITHOUT LOWER URINRY TRACT SYMP
[2018-02-13] MEDS: MINERAL OIL ENEMA 133 ML ENEMA PR ONE ×2 (15:50→17:05)
[2018-02-13] MEDS: MORPHINE SULFATE 2 MG/ML VIAL IVPUSH PRN (16:13)
[2018-02-13] MEDS ORDERED: SENNOSIDES 8.6MG TABLET (FP) PO ONE (20:28)
[2018-02-13] MEDS: GABAPENTIN 300 MG CAPSULE (FP) PO SCH (21:26)
[2018-02-13] MEDS: MONTELUKAST NA 10 MG TABLET PO SCH (21:27)
[2018-02-13] MEDS: ATORVASTATIN CA 20 MG TABLET (FP) PO SCH (21:27)
[2018-02-13] MEDS ORDERED: TAMSULOSIN HCL 0.4 MG CAP PO SCH (22:00)
[2018-02-14] MEDS: CEFAZOLIN 1 GM/D5W 1 GM/50 ML BAG IVPB SCH ×2 (01:20→09:55)
[2018-02-14] MEDS: LEVOTHYROXINE NA 100 MCG TABLET (FP) PO SCH (06:06)
[2018-02-14 07:49] VITALS: TEMP 98.2
[2018-02-14] MEDS ORDERED: PT OWN MED DRAWER 7, Y5N ONE (09:39)
[2018-02-14] MEDS: MULTIVITAMINS (DAILY MVI) TABLET (FP) PO SCH (09:52)
[2018-02-14] MEDS: RANITIDINE HCL 150 MG TABLET (FP) PO SCH (09:53)
[2018-02-14] MEDS: DOCUSATE SODIUM 100 MG CAPSULE (FP) PO SCH (09:53)
[2018-02-14] MEDS: HEPARIN NA (PORCINE) 5,000 UNITS/ML 1ML VIAL SQ SCH (09:54)
[2018-02-14] MEDS: TIOTROPIUM BROMIDE 2.5 MCG (SPIRIVA) RESPIMAT INHALER IH SCH (09:54)
[2018-02-14] MEDS: ASPIRIN 81 MG CHEWABLE TABLETS PO SCH (09:54)
[2018-02-14] MEDS: PANTOPRAZOLE 40 MG TABLET (FP) PO SCH (09:54)
[2018-02-14] MEDS: CLOPIDOGREL BISULFATE 75 MG TABLET (FP) PO SCH (09:54)
[2018-02-14] MEDS: OMEGA-3 ACID ETHYL ESTERS (FATTY-ACIDS) 1 GM CAPSULE (FP) PO SCH (09:55)
--- NOTE | 2018-02-14 11:22 | PN ---
Progress Note (short form) - Note Progress Note: Attending Surgeon POD#3 No c/o; had BM VSS AF wound clean and healing by secondary intention IMP: doing well post op PLAN: Surgically stable for d/c to office f/u w/sitz baths and showers. Robbi Prince MD FACS
--- NOTE | 2018-02-14 12:42 | DS ---
Physical Examination Vital Signs: Vital Signs Temperature 98.2 F 02/14/18 06:00 Pulse Rate 72 02/14/18 06:00 Respiratory Rate 20 02/14/18 06:00 Blood Pressure 135/72 02/14/18 06:00 O2 Sat by Pulse Oximetry (%) 97 02/13/18 21:00 Cardiovascular: Yes: S1, S2 Respiratory: Yes: Regular, CTA Bilaterally Gastrointestinal: Yes: Normal Bowel Sounds, Soft. No: Tenderness Wound/Incision: Yes: Dressing Removed, Draining (minimal) Labs: CBC, BMP 02/12/18 06:00 02/12/18 06:00 Discharge Summary Reason For Visit: PERIRECTAL ABSCESS Current Active Problems Hypothyroid (Acute) Dianna-rectal abscess (Acute) Hospital Course: - Problems (1) Dianna-rectal abscess Assessment/Plan: s/p I/D stool sofnter iv abx--to po Code(s): K61.1 - RECTAL ABSCESS (2) Hypothyroid Assessment/Plan: on synthroid Code(s): E03.9 - HYPOTHYROIDISM, UNSPECIFIED (3) BPH (benign prostatic hyperplasia) Assessment/Plan: flomax Code(s): N40.0 - BENIGN PROSTATIC HYPERPLASIA WITHOUT LOWER URINRY TRACT SYMP Condition: Guarded - Instructions Diet, Activity, Other Instructions: Dr. Prince Discharge Instructions Dear CAROLINE KRUGER, Post Operative Instructions Physical activity Resume your normal everyday activity as tolerated no heavy lifting or exercise until seen by your surgeon. You may walk unlimited amounts of and climb stairs. You may resume driving the car when you feel safe and comfortable behind the wheel. Wound care Sitz baths daily and after bowel movements. Daily packing with iodoform. Diet There are no dietary restrictions. Eat healthy, high-fiber foods. Drink 6 to 8 glasses of liquid each day. This will assist in keeping your bowels are regular. Pain management You may take Tylenol or acetaminophen or Ibuprofen (for example, Motrin, Advil etc.) Any pain prescription medication ordered should be taken as prescribed for moderate to severe pain. Call Dr. Prince for any of the following: Severe pain not relieved by medication Fever of 101 or higher Call the office at [phone] for a post operative appointment in 7 - 10 days. Referrals: Sola Alvarez MD [Primary Care Provider] - 2 Weeks Disposition: VNS/HOME HEALTH CARE - Home Medications Comprehensive Discharge Medication List: Ambulatory Orders Levothyroxine [Synthroid -] 100 mcg PO DAILY 11/11/12 Multivitamin [Multi-Day Vitamins] 1 each PO DAILY 11/11/12 [place]-3 Acid Ethyl Esters [Lovaza -] 2,000 mg PO BID 11/11/12 Tamsulosin HCl 0.4 mg PO HS 03/15/15 Clopidogrel Bisulfate [Plavix -] 75 mg PO DAILY #30 tablet 09/28/15 Gabapentin 300 mg PO HS 04/09/16 Atorvastatin Calcium 20 mg PO HS 06/11/17 Hydrocodone/Acetaminophen [Hydrocodone-Acetamin 7.5-325] 1 each PO BID 06/11/17 Pantoprazole Sodium 40 mg PO DAILY 06/11/17 Ranitidine HCl [Zantac] 150 mg PO HS 06/11/17 Acetaminophen [Tylenol .Regular Strength -] 650 mg PO Q6H PRN tablet 06/14/17 Tiotropium [place] [Spiriva] 1 puff IH DAILY #1 cap 06/14/17 Aspirin 81 mg PO DAILY 02/11/18 Amox-Tr/K Cl [Augmentin - 875Mg Tablet] 1 tab PO BID #14 tablet 02/14/18 Docusate Sodium [Colace -] 100 mg PO BID capsule 02/14/18 Polyethylene Glycol 3350 [Miralax 119 gm Btl -] 17 gm PO DAILY PRN bottle 02/14
[2018-02-14 17:00] VITALS: BP 134/72; PULSE 80
== END 2018-02-14 14:57 | disposition home health service (06) | DRG 345 ==
LOC: JER 13:14 → JASUSAT 16:42 → SUATTDRO 16:42 → J5S 21:46 → JASUSAT 21:47
PROVIDERS: ADMIT Family Medicine; ATTEND Family Medicine
PROC: 0D9P0ZX Drainage of Rectum, Open Approach, Diagnostic (ICD-10-PCS; principal; 2018-02-11 17:30)
DX: K61.39 Other ischiorectal abscess (principal); I25.110 Atherosclerotic heart disease of native coronary artery with unstable angina pectoris; L03.317 Cellulitis of buttock; J44.9 Chronic obstructive pulmonary disease, unspecified; E78.5 Hyperlipidemia, unspecified; E03.9 Hypothyroidism, unspecified; N40.0 Benign prostatic hyperplasia without lower urinary tract symptoms; Z86.718 Personal history of other venous thrombosis and embolism; K21.9 Gastro-esophageal reflux disease without esophagitis; K22.70 Barrett's esophagus without dysplasia; I65.29 Occlusion and stenosis of unspecified carotid artery; Z87.891 Personal history of nicotine dependence
CPT/HCPCS: 36415; 80053; 85025; 85610; 87070; 87186; 87205; 94010; 94760; 99281-25; J1644

== ENCOUNTER 2022-02-27 00:35 | Inpatient (IN) | payer OTHER, BC ==
[2022-02-27] MEDS ORDERED: ACETAMINOPHEN 1000 MG/100 ML BAG IVPB ONE (00:54)
[2022-02-27] MEDS ORDERED: ACETAMINOPHEN INJECTION 100 ML IVPB ONE (01:07)
[2022-02-27] MEDS ORDERED: SODIUM CHLORIDE 0.9% 500 ML INFUS.BAG IV ONE (01:14)
[2022-02-27] MEDS ORDERED: PIPERACILLIN/TAZOB 4.5 GM 4.5 GM in DEXTROSE 5%-WATER 100 ML IVPB ONE (02:08)
[2022-02-27] MEDS ORDERED: VANCOMYCIN 1,000 MG in DEXTROSE 5%-WATER - 250 ML IVPB ONE (02:08)
[2022-02-27 02:09] LABS: VENOUS BASE EXCESS 0.5 mmol/L (-2-2); VENOUS PCO2 39.8 mmHg (38-52); VENOUS PH 7.415 (7.310-7.410)
[2022-02-27 02:12] LABS: HEMATOCRIT 35.2 % (35.4-49); HEMOGLOBIN 12.3 GM/dL (11.7-16.9); MCHC 34.9 g/dl (32.0-35.9); MEAN CELL VOLUME 106.1 fl (80-96); MEAN PLT VOLUME 8.6 fl (7.5-11.1); PLATELET COUNT 140 10^3/uL (134-434); RBC 3.32 M/mm3 (4.00-5.60); RDW 15.6 % (11.9-15.9); WHITE BLOOD COUNT 5.9 K/mm3 (4.0-10.0)
[2022-02-27 02:16] LABS: INR 1.4 (0.83-1.09); PROTHROMBIN TIME (PATIENT) 16.2 SEC (9.7-13.0)
[2022-02-27 02:19] LABS: ACTIVATED PTT 28.2 SECONDS (25.2-36.5)
[2022-02-27 02:31] LABS: CALCIUM 8.3 mg/dL (8.5-10.1)
[2022-02-27 02:32] LABS: ALBUMIN 3.4 g/dl (3.4-5.0); BLOOD UREA NITROGEN 20.1 mg/dL (7-18)
[2022-02-27 02:36] LABS: BILIRUBIN,TOTAL 1.3 mg/dL (0.2-1); TOT PROT 5.8 g/dl (6.4-8.2)
[2022-02-27 02:40] LABS: N-TERMINAL BNP 662.5 pg/ml (5-450)
[2022-02-27] MEDS ORDERED: PIPERACILLIN/TAZOB 4.5 GM 4.5 GM/100 ML BAG IVPB ONE (03:03)
[2022-02-27] MEDS ORDERED: VANCOMYCIN/WATER FOR INJ (PEG) 1,000 MG/200 ML BAG IVPB ONE (03:03)
[2022-02-27 03:35] LABS: LACTIC ACID 2.1 mmol/L (0.4-2.0)
[2022-02-27] MEDS ORDERED: SODIUM CHLORIDE 500 ML IV STA (04:01)
[2022-02-27] MEDS ORDERED: OSELTAMIVIR PHOSPHATE 75 MG CAPSULE PO ONE (04:26)
[2022-02-27] MEDS ORDERED: OSELTAMIVIR PHOSPHATE 75 MG CAPSULE ONE (05:13)
[2022-02-27 07:49] LABS: EPI CELLS 15 /uL (0-25.1); HYALINE CASTS 8 /uL (0-3.1); URINE APPEARANCE CLOUDY; URINE BACTERIA 5 /uL (0-1359); URINE BILIRUBIN NEGATIVE (NEGATIVE); URINE COLOR YELLOW; URINE GLUCOSE (UA) NEGATIVE (NEGATIVE); URINE KETONE NEGATIVE (NEGATIVE); URINE LEUK ESTERASE NEGATIVE (NEGATIVE); URINE NITRITE NEGATIVE (NEGATIVE); URINE PROTEIN 1+ (NEGATIVE); URINE UROBILINOGEN 0.2 mg/dL (0.2-1.0); URINE WBC 14 /uL (0-25.8)
[2022-02-27] MEDS ORDERED: ACETAMINOPHEN 325 MG TABLET (FP) PO PRN (08:00)
[2022-02-27 09:00] LABS: URINE RBC 27.5 /uL (0-23.9)
[2022-02-27] MEDS: LEVOTHYROXINE NA 100 MCG TABLET (FP) PO SCH (09:26)
[2022-02-27] MEDS: PATIENT'S OWN MEDICATION (NON-FORMULARY) (Budesonide/Glycopyr/Formoterol [Breztri Aerosphe IH SCH (09:27)
[2022-02-27] MEDS: CLOPIDOGREL BISULFATE 75 MG TABLET (FP) PO SCH (09:27)
[2022-02-27] MEDS: ASPIRIN 81 MG CHEWABLE TABLETS PO SCH (09:27)
[2022-02-27] MEDS ORDERED: ASPIRIN 81 MG CHEWABLE TABLETS ONE (10:21)
[2022-02-27] MEDS ORDERED: LEVOTHYROXINE NA 50 MCG TABLET (FP) ONE (10:21)
[2022-02-27] MEDS ORDERED: CLOPIDOGREL BISULFATE 75 MG TABLET (FP) ONE (10:21)
[2022-02-27] MEDS ORDERED: VANCOMYCIN/WATER FOR INJ (PEG) 1,000 MG/200 ML BAG IVPB SCH ×2 (10:30→15:00)
[2022-02-27 10:31] LABS: ANISOCYTOSIS 1+; MACROCYTOSIS 1+
[2022-02-27] MEDS: guaiFENesin 200 MG/10 ML 10 ML UNIT-DOSE CUPS PO PRN ×2 (10:37→16:50)
[2022-02-27] MEDS ORDERED: guaiFENesin 200 MG/10 ML 10 ML UNIT-DOSE CUPS ONE ×2 (10:40→16:04)
[2022-02-27] MEDS ORDERED: VANCOMYCIN 1,000 MG in DEXTROSE 5%-WATER - 250 ML IVPB SCH (15:00)
[2022-02-27] MEDS ORDERED: PIPERACILLIN/TAZOB 4.5 GM 4.5 GM in DEXTROSE 5%-WATER 100 ML IVPB SCH (15:00)
[2022-02-27] MEDS ORDERED: CEFTRIAXONE 2 GM/100 ML BAG IVPB ONE (16:04)
[2022-02-27] MEDS ORDERED: AZITHROMYCIN IVPB 500 MG/250 ML BAG IVPB ONE (16:04)
[2022-02-27] MEDS: CEFTRIAXONE 2 GM in DEXTROSE 5%-WATER 100 ML IVPB SCH (16:18)
[2022-02-27] MEDS: AZITHROMYCIN IVPB 500 MG/250 ML BAG IVPB SCH (16:18)
[2022-02-27] MEDS: ATORVASTATIN CA 20 MG TABLET (FP) PO SCH (23:00)
[2022-02-27] MEDS: TAMSULOSIN HCL 0.4 MG CAP PO SCH (23:00)
[2022-02-27] MEDS: PANTOPRAZOLE 40 MG TABLET PO SCH (23:00)
[2022-02-27] MEDS: OSELTAMIVIR PHOSPHATE 75 MG CAPSULE PO SCH (23:21)
[2022-02-28] MEDS: LEVOTHYROXINE NA 100 MCG TABLET (FP) PO SCH (06:04)
[2022-02-28] MEDS: CEFTRIAXONE 2 GM in DEXTROSE 5%-WATER 100 ML IVPB SCH (10:17)
[2022-02-28] MEDS: CLOPIDOGREL BISULFATE 75 MG TABLET (FP) PO SCH (10:18)
[2022-02-28] MEDS: ASPIRIN 81 MG CHEWABLE TABLETS PO SCH (10:18)
[2022-02-28] MEDS: AZITHROMYCIN IVPB 500 MG/250 ML BAG IVPB SCH (11:28)
[2022-02-28 11:49] VITALS: BMI 24.1
[2022-02-28 13:14] LABS: BASO % 0.1 % (0-2.0); HEMATOCRIT 33.7 % (35.4-49); HEMOGLOBIN 11.8 GM/dL (11.7-16.9); LYMPH % 7.1 % (8-40); MCH 36.9 pg (25.7-33.7); MEAN CELL VOLUME 105.4 fl (80-96); MEAN PLT VOLUME 8.7 fl (7.5-11.1); MONO % 2.6 % (3.8-10.2); NEUT % 90.2 % (42.8-82.8); PLATELET COUNT 120 10^3/uL (134-434); RDW 15.9 % (11.9-15.9); WHITE BLOOD COUNT 8.7 K/mm3 (4.0-10.0)
[2022-02-28 13:27] LABS: CALCIUM 8.1 mg/dL (8.5-10.1)
[2022-02-28 13:28] LABS: ALBUMIN 2.8 g/dl (3.4-5.0); BLOOD UREA NITROGEN 21.5 mg/dL (7-18)
[2022-02-28 13:30] LABS: CREATININE 0.8 mg/dL (0.55-1.3)
[2022-02-28 13:32] LABS: BILIRUBIN,TOTAL 1.1 mg/dL (0.2-1); TOT PROT 5.2 g/dl (6.4-8.2)
[2022-02-28] MEDS: methylPREDNISolone NA SUCC 40 MG/1 ML VIAL IVPUSH SCH ×2 (15:31→21:58)
[2022-02-28] MEDS: OSELTAMIVIR PHOSPHATE 75 MG CAPSULE PO SCH ×2 (20:53→21:58)
[2022-02-28] MEDS: TAMSULOSIN HCL 0.4 MG CAP PO SCH (21:57)
[2022-02-28] MEDS: PANTOPRAZOLE 40 MG TABLET PO SCH (21:58)
[2022-02-28] MEDS: ATORVASTATIN CA 20 MG TABLET (FP) PO SCH (21:58)
[2022-03-01] MEDS: methylPREDNISolone NA SUCC 40 MG/1 ML VIAL IVPUSH SCH ×4 (02:12→22:00)
[2022-03-01] MEDS: LEVOTHYROXINE NA 100 MCG TABLET (FP) PO SCH (06:11)
[2022-03-01] MEDS: CEFTRIAXONE 2 GM in DEXTROSE 5%-WATER 100 ML IVPB SCH (10:22)
[2022-03-01] MEDS: ASPIRIN 81 MG CHEWABLE TABLETS PO SCH (10:23)
[2022-03-01] MEDS: CLOPIDOGREL BISULFATE 75 MG TABLET (FP) PO SCH (10:23)
[2022-03-01] MEDS: OSELTAMIVIR PHOSPHATE 75 MG CAPSULE PO SCH ×2 (10:24→22:00)
[2022-03-01] MEDS: AZITHROMYCIN IVPB 500 MG/250 ML BAG IVPB SCH (12:04)
[2022-03-01] MEDS: PATIENT'S OWN MEDICATION (NON-FORMULARY) (Budesonide/Glycopyr/Formoterol [Breztri Aerosphe IH SCH (17:38)
[2022-03-01] MEDS: ATORVASTATIN CA 20 MG TABLET (FP) PO SCH (21:59)
[2022-03-01] MEDS: TAMSULOSIN HCL 0.4 MG CAP PO SCH (22:00)
[2022-03-01] MEDS: BUDESONIDE/FORMETEROL FUMARATE 160/4.5 mcg INHALER IH SCH (22:00)
[2022-03-01] MEDS: PANTOPRAZOLE 40 MG TABLET PO SCH (22:00)
[2022-03-01] MEDS ORDERED: MELATONIN 5 MG TABLETS PO ONE (22:23)
[2022-03-02] MEDS: methylPREDNISolone NA SUCC 40 MG/1 ML VIAL IVPUSH SCH ×3 (03:43→17:15)
[2022-03-02] MEDS: LEVOTHYROXINE NA 88 MCG TABLET (FP) PO SCH (06:31)
[2022-03-02] MEDS: ASPIRIN 81 MG CHEWABLE TABLETS PO SCH (09:06)
[2022-03-02] MEDS: CLOPIDOGREL BISULFATE 75 MG TABLET (FP) PO SCH (09:06)
[2022-03-02] MEDS: CEFTRIAXONE 2 GM in DEXTROSE 5%-WATER 100 ML IVPB SCH (09:06)
[2022-03-02] MEDS: AZITHROMYCIN IVPB 500 MG/250 ML BAG IVPB SCH (09:08)
[2022-03-02] MEDS: OSELTAMIVIR PHOSPHATE 75 MG CAPSULE PO SCH (10:48)
[2022-03-02] MEDS: BUDESONIDE/FORMETEROL FUMARATE 160/4.5 mcg INHALER IH SCH ×2 (10:49→22:25)
[2022-03-02 11:54] VITALS: RESP 18
[2022-03-02] MEDS: ALBUTEROL SO4 2.5/IPRATROPIUM 0.5 INH SOL 3 ML VIAL.NEB. NEB SCH ×3 (12:20→19:30)
[2022-03-02 12:24] LABS: HEMATOCRIT 30.4 % (35.4-49); HEMOGLOBIN 10.6 GM/dL (11.7-16.9); MCH 36.2 pg (25.7-33.7); MEAN CELL VOLUME 103.2 fl (80-96); MEAN PLT VOLUME 8.3 fl (7.5-11.1); PLATELET COUNT 121 10^3/uL (134-434); RBC 2.95 M/mm3 (4.00-5.60); WHITE BLOOD COUNT 5.9 K/mm3 (4.0-10.0)
[2022-03-02 12:47] LABS: ALBUMIN 2.9 g/dl (3.4-5.0); BLOOD UREA NITROGEN 33.5 mg/dL (7-18); CALCIUM 8.4 mg/dL (8.5-10.1)
[2022-03-02 12:51] LABS: CREATININE 0.9 mg/dL (0.55-1.3)
[2022-03-02 12:52] LABS: BILIRUBIN,TOTAL 0.7 mg/dL (0.2-1); TOT PROT 5.4 g/dl (6.4-8.2)
[2022-03-02] MEDS: TAMSULOSIN HCL 0.4 MG CAP PO SCH (22:25)
[2022-03-02] MEDS: PANTOPRAZOLE 40 MG TABLET PO SCH (22:25)
[2022-03-03] MEDS: OSELTAMIVIR PHOSPHATE 75 MG CAPSULE PO SCH ×3 (01:29→21:46)
[2022-03-03] MEDS: methylPREDNISolone NA SUCC 40 MG/1 ML VIAL IVPUSH SCH ×3 (01:29→17:18)
[2022-03-03] MEDS: LEVOTHYROXINE NA 88 MCG TABLET (FP) PO SCH (06:58)
[2022-03-03] MEDS: ALBUTEROL SO4 2.5/IPRATROPIUM 0.5 INH SOL 3 ML VIAL.NEB. NEB SCH ×4 (07:50→21:21)
[2022-03-03] MEDS: CEFTRIAXONE 2 GM in DEXTROSE 5%-WATER 100 ML IVPB SCH (09:35)
[2022-03-03] MEDS: CLOPIDOGREL BISULFATE 75 MG TABLET (FP) PO SCH (09:35)
[2022-03-03] MEDS: ASPIRIN 81 MG CHEWABLE TABLETS PO SCH (09:35)
[2022-03-03] MEDS: BUDESONIDE/FORMETEROL FUMARATE 160/4.5 mcg INHALER IH SCH ×2 (09:38→23:42)
[2022-03-03] MEDS: AZITHROMYCIN IVPB 500 MG/250 ML BAG IVPB SCH (10:29)
[2022-03-03] MEDS: TAMSULOSIN HCL 0.4 MG CAP PO SCH (21:46)
[2022-03-03] MEDS: PANTOPRAZOLE 40 MG TABLET PO SCH (21:46)
[2022-03-04] MEDS: methylPREDNISolone NA SUCC 40 MG/1 ML VIAL IVPUSH SCH ×4 (02:19→22:55)
[2022-03-04] MEDS: LEVOTHYROXINE NA 88 MCG TABLET (FP) PO SCH (07:09)
[2022-03-04] MEDS: ALBUTEROL SO4 2.5/IPRATROPIUM 0.5 INH SOL 3 ML VIAL.NEB. NEB SCH ×4 (07:39→20:20)
[2022-03-04] MEDS: OSELTAMIVIR PHOSPHATE 75 MG CAPSULE PO SCH (09:04)
[2022-03-04] MEDS: CLOPIDOGREL BISULFATE 75 MG TABLET (FP) PO SCH (09:04)
[2022-03-04] MEDS: ASPIRIN 81 MG CHEWABLE TABLETS PO SCH (09:04)
[2022-03-04] MEDS: CEFTRIAXONE 2 GM in DEXTROSE 5%-WATER 100 ML IVPB SCH (09:06)
[2022-03-04 09:41] LABS: HEMATOCRIT 32.2 % (35.4-49); HEMOGLOBIN 11.3 GM/dL (11.7-16.9); MCH 36.4 pg (25.7-33.7); MEAN CELL VOLUME 104.1 fl (80-96); MEAN PLT VOLUME 8.3 fl (7.5-11.1); PLATELET COUNT 153 10^3/uL (134-434); RBC 3.09 M/mm3 (4.00-5.60); RDW 15.8 % (11.9-15.9); WHITE BLOOD COUNT 9.5 K/mm3 (4.0-10.0)
[2022-03-04 10:05] LABS: CALCIUM 8.6 mg/dL (8.5-10.1)
[2022-03-04 10:06] LABS: ALBUMIN 3.1 g/dl (3.4-5.0); BLOOD UREA NITROGEN 20.8 mg/dL (7-18)
[2022-03-04 10:09] LABS: CREATININE 0.9 mg/dL (0.55-1.3)
[2022-03-04 10:11] LABS: TOT PROT 5.5 g/dl (6.4-8.2)
[2022-03-04] MEDS: AZITHROMYCIN IVPB 500 MG/250 ML BAG IVPB SCH (10:15)
[2022-03-04 10:51] LABS: ANISOCYTOSIS 3+; MACROCYTOSIS 1+; OVALOCYTE 2+
[2022-03-04] MEDS: BUDESONIDE/FORMETEROL FUMARATE 160/4.5 mcg INHALER IH SCH ×2 (11:03→22:59)
[2022-03-04] MEDS: PANTOPRAZOLE 40 MG TABLET PO SCH (22:55)
[2022-03-04] MEDS: TAMSULOSIN HCL 0.4 MG CAP PO SCH (22:55)
[2022-03-05] MEDS: LEVOTHYROXINE NA 88 MCG TABLET (FP) PO SCH (06:44)
[2022-03-05 06:50] VITALS: BP 127/71; PULSE 89; TEMP 97.9
[2022-03-05] MEDS: ALBUTEROL SO4 2.5/IPRATROPIUM 0.5 INH SOL 3 ML VIAL.NEB. NEB SCH ×3 (07:40→15:18)
[2022-03-05] MEDS: CEFTRIAXONE 2 GM in DEXTROSE 5%-WATER 100 ML IVPB SCH (10:43)
[2022-03-05] MEDS: ASPIRIN 81 MG CHEWABLE TABLETS PO SCH (10:43)
[2022-03-05] MEDS: AZITHROMYCIN IVPB 500 MG/250 ML BAG IVPB SCH (10:43)
[2022-03-05] MEDS: CLOPIDOGREL BISULFATE 75 MG TABLET (FP) PO SCH (10:43)
[2022-03-05] MEDS: methylPREDNISolone NA SUCC 40 MG/1 ML VIAL IVPUSH SCH (10:44)
[2022-03-05] MEDS: BUDESONIDE/FORMETEROL FUMARATE 160/4.5 mcg INHALER IH SCH (10:45)
== END 2022-03-05 17:56 | disposition home health service (06) | DRG 190 ==
LOC: JER 00:35 → JERBED 02:20 → J5S 22:52 → J6S 03-02 15:09
PROVIDERS: ADMIT Internal Medicine; ATTEND Family Medicine
DX: J44.1 Chronic obstructive pulmonary disease with (acute) exacerbation (principal); J18.9 Pneumonia, unspecified organism; E87.20 Acidosis, unspecified; J10.1 Influenza due to other identified influenza virus with other respiratory manifestations; I10 Essential (primary) hypertension; E78.5 Hyperlipidemia, unspecified; N40.0 Benign prostatic hyperplasia without lower urinary tract symptoms; K21.9 Gastro-esophageal reflux disease without esophagitis; E03.9 Hypothyroidism, unspecified; I25.10 Atherosclerotic heart disease of native coronary artery without angina pectoris; E86.0 Dehydration; D69.6 Thrombocytopenia, unspecified
CPT/HCPCS: 0241U-QW; 36415; 71045-TC-FY; 76705-TC; 80053; 81003; 82550; 82553; 82803; 82962; 83605; 83880; 84443; 84484; 85025; 85027; 85610; 85730; 86850; 86900; 86901; 87040; 87086; 93005; 93010; 94640; 99285-25

== ENCOUNTER 2023-07-26 16:15 | Inpatient (IN) | payer OTHER, BC ==
[2023-07-26] MEDS ORDERED: methylPREDNISolone NA SUCC 125 MG/2 ML VIAL ONE (16:55)
[2023-07-26 17:31] LABS: BASO % 0.2 % (0-2.0); HEMATOCRIT 35.3 % (35.4-49); HEMOGLOBIN 12.4 GM/dL (11.7-16.9); LYMPH % 4.7 % (8-40); MCH 36.9 pg (25.7-33.7); MCHC 35.2 g/dl (32.0-35.9); MEAN CELL VOLUME 105.1 fl (80-96); MEAN PLT VOLUME 7.7 fl (7.5-11.1); MONO % 2.8 % (3.8-10.2); NEUT % 92.3 % (42.8-82.8); PLATELET COUNT 147 10^3/uL (134-434); RBC 3.36 M/mm3 (4.00-5.60); RDW 17.5 % (11.9-15.9)
[2023-07-26] MEDS: ALBUTEROL SO4 2.5/IPRATROPIUM 0.5 INH SOL 3 ML VIAL.NEB. NEB SCH ×2 (17:32→22:48)
[2023-07-26] MEDS: methylPREDNISolone NA SUCC 125 MG/2 ML VIAL IVPUSH ONE (17:32)
[2023-07-26 17:40] LABS: INR 1.25 (0.83-1.09)
[2023-07-26 17:43] LABS: ACTIVATED PTT 28.9 SECONDS (25.2-36.5)
[2023-07-26 17:52] LABS: POTASSIUM 5.1 mmol/L (3.5-5.1)
[2023-07-26 17:54] LABS: ALBUMIN 3.6 g/dl (3.4-5.0); BLOOD UREA NITROGEN 20.5 mg/dL (7-18); CALCIUM 8.6 mg/dL (8.5-10.1)
[2023-07-26 17:55] LABS: VENOUS BASE EXCESS -0.8 mmol/L (-2-2); VENOUS O2 SATURATION 25.9 % (70-80); VENOUS PCO2 43.1 mmHg (38-52); VENOUS PH 7.373 (7.310-7.410)
[2023-07-26 17:57] LABS: CREATININE 1.1 mg/dL (0.55-1.3)
[2023-07-26 17:59] LABS: BILIRUBIN,TOTAL 3.2 mg/dL (0.2-1); TOT PROT 6.6 g/dl (6.4-8.2)
[2023-07-26 18:02] LABS: N-TERMINAL BNP 534.2 pg/ml (5-450)
[2023-07-26 18:03] LABS: ANISOCYTOSIS 2+; MACROCYTOSIS 0; OVALOCYTE 1+
[2023-07-26] MEDS ORDERED: ALBUTEROL SO4 2.5/IPRATROPIUM 0.5 INH SOL 3 ML VIAL.NEB. NEB ONE (18:04)
[2023-07-26] MEDS ORDERED: PIPERACILLIN/TAZOB 3.375 GM 3.375 GM in DEXTROSE 5%-WATER - 50 ML IVPB SCH (18:45)
[2023-07-26] MEDS ORDERED: PIPERACILLIN/TAZOB 3.375 GM 3.375 GM/50 ML BAG IVPB ONE (18:48)
[2023-07-26 18:57] LABS: POTASSIUM 4.8 mmol/L (3.5-5.1)
[2023-07-26 19:00] LABS: CALCIUM 8.8 mg/dL (8.5-10.1)
[2023-07-26 19:01] LABS: BLOOD UREA NITROGEN 20.6 mg/dL (7-18)
[2023-07-26] MEDS: PIPERACILLIN/TAZOB 3.375 GM 3.375 GM in DEXTROSE 5%-WATER - 50 ML IVPB SCH (19:08)
[2023-07-26] MEDS: methylPREDNISolone NA SUCC 40 MG/1 ML VIAL IVPUSH SCH (19:15)
[2023-07-26] MEDS: PANTOPRAZOLE 40 MG TABLET PO SCH (21:44)
[2023-07-26] MEDS: TAMSULOSIN HCL 0.4 MG CAP PO SCH (21:44)
[2023-07-26] MEDS: GABAPENTIN 300 MG CAPSULE PO SCH (21:44)
[2023-07-26] MEDS: ATORVASTATIN CA 20 MG TABLET (FP) PO SCH (21:44)
[2023-07-26] MEDS: HEPARIN NA (PORCINE) 5,000 UNITS/ML 1ML VIAL SQ SCH (21:45)
[2023-07-26 22:02] VITALS: BMI 23.7
[2023-07-27] MEDS: LEVOTHYROXINE NA 100 MCG TABLET (FP) PO SCH (06:28)
[2023-07-27 08:18] LABS: HEMATOCRIT 32.7 % (35.4-49); HEMOGLOBIN 11.5 GM/dL (11.7-16.9); MCH 36.5 pg (25.7-33.7); MCHC 35.1 g/dl (32.0-35.9); MEAN PLT VOLUME 8.4 fl (7.5-11.1); PLATELET COUNT 132 10^3/uL (134-434); RBC 3.15 M/mm3 (4.00-5.60); RDW 16.7 % (11.9-15.9)
[2023-07-27 08:29] LABS: POTASSIUM 3.7 mmol/L (3.5-5.1)
[2023-07-27 08:32] LABS: CALCIUM 8.6 mg/dL (8.5-10.1)
[2023-07-27 08:33] LABS: ALBUMIN 3.1 g/dl (3.4-5.0); BLOOD UREA NITROGEN 19.1 mg/dL (7-18); MAGNESIUM 2.1 mg/dL (1.8-2.4)
[2023-07-27 08:35] LABS: CREATININE 0.9 mg/dL (0.55-1.3)
[2023-07-27 08:37] LABS: BILIRUBIN,TOTAL 1.4 mg/dL (0.2-1); TOT PROT 5.5 g/dl (6.4-8.2)
[2023-07-27] MEDS: CLOPIDOGREL BISULFATE 75 MG TABLET (FP) PO SCH (10:24)
[2023-07-27] MEDS: ASPIRIN 81 MG CHEWABLE TABLETS PO SCH (10:24)
[2023-07-27] MEDS: PIPERACILLIN/TAZOB 3.375 GM 3.375 GM in DEXTROSE 5%-WATER - 50 ML IVPB SCH (18:51)
[2023-07-28 07:35] LABS: HEMATOCRIT 31.3 % (35.4-49); HEMOGLOBIN 11.1 GM/dL (11.7-16.9); MCHC 35.5 g/dl (32.0-35.9); MEAN CELL VOLUME 104.3 fl (80-96); MEAN PLT VOLUME 8.3 fl (7.5-11.1); PLATELET COUNT 152 10^3/uL (134-434); RDW 16.6 % (11.9-15.9); WHITE BLOOD COUNT 12.2 K/mm3 (4.0-10.0)
[2023-07-28 07:38] LABS: POTASSIUM 4.3 mmol/L (3.5-5.1)
[2023-07-28 07:46] LABS: BLOOD UREA NITROGEN 31.8 mg/dL (7-18); CALCIUM 8.7 mg/dL (8.5-10.1)
[2023-07-28 07:47] LABS: ALBUMIN 3.2 g/dl (3.4-5.0)
[2023-07-28 07:50] LABS: CREATININE 1.1 mg/dL (0.55-1.3)
[2023-07-28 07:51] LABS: BILIRUBIN,TOTAL 1.2 mg/dL (0.2-1); TOT PROT 5.7 g/dl (6.4-8.2)
[2023-07-28 09:07] LABS: ANISOCYTOSIS 1+; MACROCYTOSIS 1+
[2023-07-28 09:14] LABS: PLATELET ESTIMATE ADEQUATE
[2023-07-28] MEDS: methylPREDNISolone NA SUCC 40 MG/1 ML VIAL IVPUSH SCH (21:56)
[2023-07-29 07:35] LABS: BASO % 0.1 % (0-2.0); HEMATOCRIT 29.9 % (35.4-49); HEMOGLOBIN 10.5 GM/dL (11.7-16.9); LYMPH % 3.6 % (8-40); MCH 36.8 pg (25.7-33.7); MCHC 35.2 g/dl (32.0-35.9); MEAN CELL VOLUME 104.5 fl (80-96); MEAN PLT VOLUME 8.2 fl (7.5-11.1); MONO % 3.4 % (3.8-10.2); NEUT % 92.9 % (42.8-82.8); PLATELET COUNT 153 10^3/uL (134-434); RBC 2.86 M/mm3 (4.00-5.60); RDW 17.2 % (11.9-15.9); WHITE BLOOD COUNT 10.1 K/mm3 (4.0-10.0)
[2023-07-29 07:54] LABS: POTASSIUM 4.8 mmol/L (3.5-5.1)
[2023-07-29 08:05] LABS: CALCIUM 8.9 mg/dL (8.5-10.1)
[2023-07-29 09:44] LABS: ANISOCYTOSIS 0; MACROCYTOSIS 1+
[2023-07-29 11:48] LABS: URINE APPEARANCE CLEAR; URINE BILIRUBIN NEGATIVE (NEGATIVE); URINE COLOR YELLOW; URINE GLUCOSE (UA) NEGATIVE (NEGATIVE); URINE KETONE NEGATIVE (NEGATIVE); URINE LEUK ESTERASE NEGATIVE (NEGATIVE); URINE NITRITE NEGATIVE (NEGATIVE); URINE PROTEIN NEGATIVE (NEGATIVE)
[2023-07-29] MEDS ORDERED: ACETAMINOPHEN 325 MG TABLET (FP) PO PRN (12:02)
[2023-07-30 08:49] VITALS: RESP 18
[2023-07-30] MEDS: predniSONE 20 MG TABLET (UD) PO SCH (09:29)
[2023-07-30] MEDS: POLYETHYLENE GLYCOL (HEALTHYLAX) 3350 17 GM PACKET PO SCH (09:29)
[2023-07-31 17:56] VITALS: BP 118/60; PULSE 78; TEMP 98.4
== END 2023-07-31 18:13 | DRG 192 ==
LOC: JER 16:15 → JERBED 17:54 → J4W 20:33
PROVIDERS: ADMIT Family Medicine; ATTEND Family Medicine
DX: J44.1 Chronic obstructive pulmonary disease with (acute) exacerbation (principal); N40.0 Benign prostatic hyperplasia without lower urinary tract symptoms; E03.9 Hypothyroidism, unspecified; K21.9 Gastro-esophageal reflux disease without esophagitis; J34.89 Other specified disorders of nose and nasal sinuses; R09.02 Hypoxemia; E78.00 Pure hypercholesterolemia, unspecified; I10 Essential (primary) hypertension; J06.9 Acute upper respiratory infection, unspecified; K57.90 Diverticulosis of intestine, part unspecified, without perforation or abscess without bleeding; K22.70 Barrett's esophagus without dysplasia; I25.10 Atherosclerotic heart disease of native coronary artery without angina pectoris; R50.9 Fever, unspecified; G62.9 Polyneuropathy, unspecified; Z95.1 Presence of aortocoronary bypass graft; Z95.2 Presence of prosthetic heart valve
CPT/HCPCS: 0241U-QW; 36415; 71045-TC-FY; 71250-TC; 80048; 80053; 80061; 81003; 82803; 83036; 83735; 83880; 84443; 84484; 85025; 85610; 85730; 87040; 87086; 93005; 93010; 93306-TC; 94640; 94761; 97116-GP; 97162-GP; 99285-25; J1644

== ENCOUNTER 2024-09-22 22:47 | Inpatient (IN) | payer OTHER, BC ==
[2024-09-22] MEDS ORDERED: predniSONE 20 MG TABLET (UD) ONE (23:10)
[2024-09-22] MEDS ORDERED: methylPREDNISolone NA SUCC 40 MG/1 ML VIAL ONE (23:20)
[2024-09-22] MEDS: methylPREDNISolone NA SUCC 125 MG/2 ML VIAL IVPB ONE (23:35)
[2024-09-22] MEDS: predniSONE 20 MG TABLET (UD) PO ONE (23:36)
[2024-09-22] MEDS: ALBUTEROL SO4 2.5/IPRATROPIUM 0.5 INH SOL 3 ML VIAL.NEB. NEB SCH (23:36)
[2024-09-22 23:38] LABS: MCHC 33.6 g/dl (32.3-36.5); MEAN CELL VOLUME 107.4 fl (79.0-92.2); MEAN PLT VOLUME 9.6 fl (9.4-12.4); RDW 16.9 % (12.6-16.6)
[2024-09-22] MEDS ORDERED: IPRATROPIUM BR 0.02% 0.5 MG/2.5 ML VIAL.NEB. NEB ONE (23:38)
[2024-09-22 23:40] LABS: BG HCT 42.0 % (35.4-49); VENOUS BASE EXCESS -1.0 mmol/L (-2-2); VENOUS O2 SATURATION 86.6 % (70-80); VENOUS PCO2 40.5 mmHg (38-52); VENOUS PH 7.388 (7.310-7.410)
[2024-09-22] MEDS: IPRATROPIUM BR 0.02% 0.5 MG/2.5 ML VIAL.NEB. NEB ONE (23:45)
[2024-09-22 23:51] LABS: INR 1.24 (0.83-1.09); PROTHROMBIN TIME (PATIENT) 13.6 SEC (9.7-13.0)
[2024-09-22 23:54] LABS: ACTIVATED PTT 27.4 SECONDS (25.2-36.5)
[2024-09-22 23:57] LABS: CO2 28.0 mmol/L (21-32)
[2024-09-22 23:58] LABS: GLUCOSE,RANDOM 172.0 mg/dL (74-106)
[2024-09-23] LABS: SGPT/ALT 60.0 U/L (13-61)
[2024-09-23 00:01] LABS: CREATININE 0.8 mg/dL (0.55-1.3); SGOT/AST 66.0 U/L (15-37)
[2024-09-23 00:02] LABS: TOT PROT 5.8 g/dl (6.4-8.2)
[2024-09-23 00:03] LABS: ALK PHOS 176.0 U/L (45-117)
[2024-09-23 00:57] LABS: HCV DIAGNOSTIC IN-HOUSE W/RFLX NON-REACTIVE (NONREACTIVE)
[2024-09-23 00:58] LABS: HIV INTERPRETATION NEGATIVE (NEGATIVE)
[2024-09-23] MEDS ORDERED: CEFTRIAXONE 1 GM/50 ML BAG ONE (03:29)
[2024-09-23] MEDS ORDERED: AZITHROMYCIN IVPB 500 MG/250 ML BAG IVPB ONE (03:29)
[2024-09-23] MEDS ORDERED: FUROSEMIDE 40 MG/4 ML INJECTABLE VIAL ONE (03:29)
[2024-09-23] MEDS: FUROSEMIDE 40 MG/4 ML INJECTABLE VIAL IVPUSH ONE (03:37)
[2024-09-23] MEDS: CEFTRIAXONE 1 GM in DEXTROSE 5%-WATER - 100 ML IVPB ONE (03:37)
[2024-09-23] MEDS: AZITHROMYCIN IVPB 500 MG in DEXTROSE 5%-WATER - 250 ML IVPB ONE (04:39)
[2024-09-23 05:53] LABS: URINE APPEARANCE CLEAR; URINE BILIRUBIN NEGATIVE (NEGATIVE); URINE COLOR YELLOW; URINE GLUCOSE (UA) NEGATIVE (NEGATIVE); URINE KETONE NEGATIVE (NEGATIVE); URINE LEUK ESTERASE NEGATIVE (NEGATIVE); URINE NITRITE NEGATIVE (NEGATIVE); URINE PROTEIN NEGATIVE (NEGATIVE); URINE UROBILINOGEN 2.0 mg/dL (0.2-1.0)
[2024-09-23 06:02] LABS: CO2 29.0 mmol/L (21-32); GLUCOSE,RANDOM 194.0 mg/dL (74-106)
[2024-09-23 06:06] LABS: CREATININE 0.8 mg/dL (0.55-1.3)
[2024-09-23 06:24] LABS: MCHC 33.0 g/dl (32.3-36.5); MEAN CELL VOLUME 108.0 fl (79.0-92.2); MEAN PLT VOLUME 10.4 fl (9.4-12.4); RDW 16.8 % (12.6-16.6)
[2024-09-23] MEDS ORDERED: LEVOTHYROXINE NA 100 MCG TABLET (FP) ONE (08:37)
[2024-09-23] MEDS: LEVOTHYROXINE NA 100 MCG TABLET (FP) PO SCH (08:52)
[2024-09-23] MEDS ORDERED: methylPREDNISolone NA SUCC 40 MG/1 ML VIAL ONE (09:07)
[2024-09-23] MEDS: methylPREDNISolone NA SUCC 40 MG/1 ML VIAL IVPUSH SCH (09:15)
[2024-09-23] MEDS ORDERED: ALBUTEROL SO4 2.5/IPRATROPIUM 0.5 INH SOL 3 ML VIAL.NEB. NEB ONE (09:16)
[2024-09-23] MEDS: ALBUTEROL SO4 2.5/IPRATROPIUM 0.5 INH SOL 3 ML VIAL.NEB. NEB SCH (12:11)
[2024-09-23] MEDS: TAMSULOSIN HCL 0.4 MG CAP PO SCH (17:48)
[2024-09-24] MEDS: PIPERACILLIN/TAZOB 3.375 GM 3.375 GM in DEXTROSE 5%-WATER - 50 ML IVPB SCH (00:18)
[2024-09-24 08:53] LABS: MCHC 33.0 g/dl (32.3-36.5); MEAN CELL VOLUME 108.5 fl (79.0-92.2); MEAN PLT VOLUME 10.4 fl (9.4-12.4); RDW 16.5 % (12.6-16.6)
[2024-09-24 10:14] LABS: CO2 32.0 mmol/L (21-32); GLUCOSE,RANDOM 152.0 mg/dL (74-106)
[2024-09-24 10:17] LABS: CREATININE 0.7 mg/dL (0.55-1.3); SGOT/AST 45.0 U/L (15-37); SGPT/ALT 54.0 U/L (13-61)
[2024-09-24 10:18] LABS: TOT PROT 4.7 g/dl (6.4-8.2)
[2024-09-24 10:20] LABS: ALK PHOS 148.0 U/L (45-117)
[2024-09-24] MEDS ORDERED: ALBUTEROL SO4 0.042% IH SOL 1.25 MG/3 ML VIAL.NEB NEB PRN (14:20)
[2024-09-24] MEDS: FUROSEMIDE 40 MG/4 ML INJECTABLE VIAL IVPUSH ONE (14:49)
[2024-09-24] MEDS: guaiFENesin/D-METHORPHAN HB 10 ML UNIT-DOSE CUPS PO PRN (14:50)
[2024-09-24] MEDS: FUROSEMIDE 40 MG/4 ML INJECTABLE VIAL IVPUSH SCH (20:44)
[2024-09-25 08:26] LABS: MCHC 33.4 g/dl (32.3-36.5); MEAN CELL VOLUME 107.7 fl (79.0-92.2); MEAN PLT VOLUME 10.1 fl (9.4-12.4); RDW 16.1 % (12.6-16.6)
[2024-09-25 08:54] LABS: CO2 35.0 mmol/L (21-32)
[2024-09-25 08:55] LABS: GLUCOSE,RANDOM 160.0 mg/dL (74-106)
[2024-09-25 08:57] LABS: SGOT/AST 52.0 U/L (15-37); SGPT/ALT 64.0 U/L (13-61)
[2024-09-25 08:58] LABS: CREATININE 0.9 mg/dL (0.55-1.3)
[2024-09-25 08:59] LABS: ALK PHOS 158.0 U/L (45-117); TOT PROT 5.4 g/dl (6.4-8.2)
[2024-09-25 09:02] LABS: N-TERMINAL BNP 1561.6 pg/ml (5-450)
[2024-09-25] MEDS: ALBUTEROL SO4 0.083% IH SOL 2.5 MG/3 ML VIAL.NEB. NEB PRN (13:50)
[2024-09-25] MEDS: IPRATROPIUM BR 0.02% 0.5 MG/2.5 ML VIAL.NEB. NEB SCH ×2 (16:15→20:03)
[2024-09-25] MEDS: LEVALBUTEROL HCL 0.63 MG/3 ML VIAL.NEB. IH SCH ×2 (16:16→20:04)
[2024-09-25] MEDS ORDERED: IPRATROPIUM BR 0.02% 0.5 MG/2.5 ML VIAL.NEB. NEB PRN (16:30)
[2024-09-25] MEDS ORDERED: LEVALBUTEROL HCL 0.63 MG/3 ML VIAL.NEB. IH PRN (16:30)
[2024-09-25] MEDS: PIPERACILLIN/TAZOB 3.375 GM 3.375 GM in DEXTROSE 5%-WATER - 50 ML IVPB SCH (18:53)
[2024-09-25] MEDS: TAMSULOSIN HCL 0.4 MG CAP PO SCH (18:55)
[2024-09-25] MEDS: methylPREDNISolone NA SUCC 40 MG/1 ML VIAL IVPUSH SCH (20:33)
[2024-09-26] MEDS: LEVOTHYROXINE NA 100 MCG TABLET (FP) PO SCH (06:17)
[2024-09-26 07:44] LABS: CO2 34.0 mmol/L (21-32); GLUCOSE,RANDOM 185.0 mg/dL (74-106)
[2024-09-26 07:46] LABS: CREATININE 1.0 mg/dL (0.55-1.3)
[2024-09-26 08:19] LABS: MCHC 33.2 g/dl (32.3-36.5); MEAN CELL VOLUME 107.9 fl (79.0-92.2); MEAN PLT VOLUME 10.8 fl (9.4-12.4); RDW 16.2 % (12.6-16.6)
[2024-09-26 10:50] LABS: IRON SERUM 142.0 ug/dL (50-175)
[2024-09-26] MEDS ORDERED: TAMSULOSIN HCL 0.4 MG CAP PO SCH (18:00)
[2024-09-27] MEDS: guaiFENesin/D-METHORPHAN HB 10 ML UNIT-DOSE CUPS PO PRN (09:06)
[2024-09-27] MEDS: LIDOCAINE 5% TOPICAL PATCH TP SCH (11:40)
[2024-09-27] MEDS: LIDOCAINE PATCH REMOVAL MC SCH (21:17)
[2024-09-27] MEDS: MAG HYDROX/AL HYDROX/SIMETH 30 ML UNIT-DOSE CUP PO ONE (23:16)
[2024-09-28 06:44] LABS: MCHC 33.1 g/dl (32.3-36.5); MEAN CELL VOLUME 107.4 fl (79.0-92.2); MEAN PLT VOLUME 11.1 fl (9.4-12.4); RDW 15.9 % (12.6-16.6)
[2024-09-28 07:08] LABS: CO2 36.0 mmol/L (21-32); GLUCOSE,RANDOM 171.0 mg/dL (74-106)
[2024-09-28 07:11] LABS: CREATININE 0.8 mg/dL (0.55-1.3)
[2024-09-28] MEDS: methylPREDNISolone NA SUCC 40 MG/1 ML VIAL IVPUSH SCH (10:51)
[2024-09-29 14:57] VITALS: BMI 23.5
[2024-09-29] MEDS: methylPREDNISolone NA SUCC 40 MG/1 ML VIAL IVPUSH SCH (22:19)
[2024-09-30] MEDS: APIXABAN 5 MG TABLET PO SCH (09:46)
[2024-09-30 11:25] VITALS: BP 98/76; PULSE 82; RESP 26; TEMP 97.7
== END 2024-09-30 12:36 | disposition home health service (06) | DRG 193 ==
LOC: JER 22:47 → JERBED 22:59 → J7W 09-23 15:14 → J4S 09-25 18:20
PROVIDERS: ADMIT Family Medicine; ATTEND Family Medicine
DX: J18.9 Pneumonia, unspecified organism (principal); J96.01 Acute respiratory failure with hypoxia; J44.0 Chronic obstructive pulmonary disease with (acute) lower respiratory infection; J44.1 Chronic obstructive pulmonary disease with (acute) exacerbation; E03.9 Hypothyroidism, unspecified; I11.0 Hypertensive heart disease with heart failure; E78.5 Hyperlipidemia, unspecified; I25.10 Atherosclerotic heart disease of native coronary artery without angina pectoris; N40.0 Benign prostatic hyperplasia without lower urinary tract symptoms; K21.9 Gastro-esophageal reflux disease without esophagitis; I50.9 Heart failure, unspecified
CPT/HCPCS: 36415; 71045-TC-FY; 71275-TC; 80048; 80053; 81003; 82550; 82803; 82962; 83540; 83550; 83735; 83880; 84439; 84443; 84484; 85025; 85027; 85610; 85730; 86803; 87040; 87070; 87086; 87205; 87389; 87637-QW; 87899; 93005; 93010; 94640; 97116-GP; 97161-GP; 99285-25; E0186; Q9967

== ENCOUNTER 2024-11-24 07:38 | Emergency (ER) | payer OTHER, BC ==
[2024-11-24 07:44] VITALS: TEMP 98; BMI 22.1
[2024-11-24] MEDS ORDERED: ALBUTEROL SO4 2.5/IPRATROPIUM 0.5 INH SOL 3 ML VIAL.NEB. NEB ONE (09:02)
[2024-11-24] MEDS: ALBUTEROL SO4 2.5/IPRATROPIUM 0.5 INH SOL 3 ML VIAL.NEB. NEB SCH (09:11)
[2024-11-24] MEDS: methylPREDNISolone NA SUCC 125 MG/2 ML VIAL IVPB ONE (09:27)
[2024-11-24 10:56] VITALS: BP 118/58; PULSE 103; RESP 19
== END 2024-11-24 11:20 | disposition home or self-care (01) ==
LOC: JER 07:38
PROC: 3E0F7GC Introduction of Other Therapeutic Substance into Respiratory Tract, Via Natural or Artificial Opening (ICD-10-PCS; principal; 2024-11-24)
DX: M79.89 Other specified soft tissue disorders (principal); R06.02 Shortness of breath
CPT/HCPCS: 93005; 93010; 93970-TC; 94640; 99284-25